=== PATIENT | male | born 1960 | race Caucasian/White ===

== ENCOUNTER 2025-05-07 08:48 | Outpatient (CLI) | payer MEDICARE, SELFPAY ==
[2025-05-07 09:05] VITALS: BP 123/80; PULSE 82; RESP 14; TEMP 36.4; O2SAT 97; BMI 20.5
[2025-05-07 09:20] LABS: Basophils Absolute Auto 0.08 K/mm3 (0.00-0.10); Basophils Percent Auto 0.6 % (0.0-1.0); Eosinophils Absolute Auto 0.36 K/mm3 (0.02-0.50); Eosinophils Percent Auto 2.8 % (1.0-6.0); Hematocrit 43.6 % (37.0-46.0); Immature Granulocyte Absolute 0.06 K/mm3 (0.00-0.00); Immature Granulocyte Percent A 0.5 % (0.0-0.0); Lymphocytes Absolute Auto 1.53 K/mm3 (1.10-4.50); Lymphocytes Percent Auto 12.1 % (18.0-42.0); Mean Corpuscular HGB Conc 32.1 g/dL (32-36); Mean Corpuscular Hemoglobin 27.6 pg (27.0-31.0); Mean Platelet Volume 8.4 fl (8.7-11.0); Monocytes Absolute Auto 1.31 K/mm3 (0.10-0.90); Monocytes Percent Auto 10.3 % (2.0-11.0); Neutrophils Absolute Auto 9.35 K/mm3 (1.70-7.20); Neutrophils Percent Auto 73.7 % (50.0-70.0); Platelet Count Result 439 K/mm3 (150-420); Red Blood Count 5.07 M/mm3 (4.70-6.10); Red Cell Distribution Width 12.9 % (11.6-14.4); White Blood Count 12.7 K/mm3 (4.8-10.8)
[2025-05-07 09:29] LABS: Alanine Aminotransferase 37 U/L (6-50); Albumin Level 4.3 g/dL (3.5-5.1); Alkaline Phosphatase 100 U/L (38-126); Anion Gap 10 mmol/L (4-12); Aspartate Amino Transferase 28 U/L (17-59); Bilirubin,Total 0.6 mg/dL (0.2-1.3); Blood Urea Nitrogen 34 mg/dL (9-20); Calcium 9.9 mg/dL (8.4-10.2); Carbon Dioxide 24 mmol/L (22-30); Chloride 101 mmol/L (98-107); Estimated CRCL calculation 39 ml/min; Estimated Glomerular Filt Rate 46; Glucose 136 mg/dL (65-110); Osmolality Calculated 289 mOsm/kg (285-295); Potassium 4.5 mmol/L (3.4-5.0); Sodium 135 mmol/L (137-145); Total Protein 7.8 g/dL (6.3-8.2)
[2025-05-07] MEDS: PEMBROLIZUMAB 200 MG in SODIUM CHLORIDE 0.9% IV 100 ML IVPB (10:05)
[2025-05-07] MEDS: HEPARIN SODIUM LOCK FLUSH 500 UNITS/5 ML SYRINGE IV PUSH (10:39)
[2025-05-07 10:51] VITALS: BP 109/70; PULSE 80; RESP 14; O2SAT 96
--- NOTE | 2025-05-07 10:53 | PC.NURSE ---
Patient tolerated Pembrolizumab infusion well. see MAR/patient care notes
[2025-05-09 06:58] LABS: Cortisol Random 25.2 mcg/dL
== END 2025-05-07 08:49 | disposition home or self-care (01) ==
LOC: CHSLAB 08:55 → CHSTREATRM 08:58
PROVIDERS: PCP Family Medicine; Visit Provider Internal Medicine Hematology
DX: Z51.11 Encounter for antineoplastic chemotherapy (principal); C04.9 Malignant neoplasm of floor of mouth, unspecified; I10 Essential (primary) hypertension
CPT/HCPCS: 36415; 36591; 80053; 82533; 84443; 85025; 96413; J9271

== ENCOUNTER 2025-05-28 08:41 | Outpatient (CLI) | payer MEDICARE, SELFPAY ==
[2025-05-28 08:45] VITALS: BP 103/60; PULSE 90; RESP 14; TEMP 36.6; O2SAT 95; BMI 20.1
--- OUTSIDE RECORDS SUMMARY | 2025-05-28 08:49 | XMS_ITS | Data Portability ---
Author Organization [facility], [address] [facility] ([place]) Address [address] [place] [address] Care Team Providers Care Wood Treating Inspector Name Role Phone ARRON FLORES Primary Care Provider DANA JUAREZ Fire Claims Adjuster MADELINE GILLILAND Fire Claims Adjuster Assessment Encounter Date Assessment Date Assessment LastModified by Organization Details LastModified Time 05/01/2024 05/01/2024 Mr. Villegas is a pleasant 63-year-old male with a past medical history significant for hypertension, hyperlipidemia, chronic kidney disease stage III with a baseline serum creatinine ranging between 1.6 1.9 who is here for follow-up appointment. Chronic kidney disease stage III with baseline serum creatinine ranging between 1.6 1.9. Patient's most recent serum creatinine is noted to be 2.28 with a GFR of 31 which is slightly worse than previous visit. Patient will repeat a BMP in 1 month. Patient's urine microalbumin/creat inine ratio was not done and he will do it with his 1 month repeat BMP. Fluid and electrolyte balance are adequate. Patient continues to hydrate well and to avoid NSAIDs. Continue to monitor renal function panel at regular intervals. Discussed about KDIGO recommendations to prevent CKD progression -Advised to undertake moderate-intensity physical activity for a cumulative duration of at least 150 minutes per week, or to a level compatible with their cardiovascular and physical tolerance -Patients should consume a balanced, healthy diet that is high in vegetables, , plant-based proteins, unsaturated fats, and lower in processed meats, refined carbohydrates, and sweetened beverages. -Sodium (<2 g/day) and protein intake (0.8 g/kg/day) in accordance with recommendations for the general population. - Suggest NOT to prescribe bisphosphonate treatment in people with GFR o30 ml/min/1.73 m2 (GFR categories G4-G5) without a strong clinical rationale. -Individualize Hba1c target goal of 6.5 to 8 % based on underlying comorbidities -Cessation of tobacco -Avoid Nephrotoxic agents -such as NSAIDS renal dosage of all medications to the appropriate GFR -Reduce albuminuria with use of CARON inhibitor or ARB -initiation of SGLT-2 Inhibitors if appropriate indication. 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 Anemia of chronic disease Patient's hemoglobin is stable with no indication for HOANG. Hypertension Patient's blood pressure is good here in the office. Patient will continue with his current med regimen and continue to follow a low-sodium diet. The patient had the opportunity to ask and have questions answered. The patient voiced an understanding of the diagnosis and of the care plan and intent to comply with it. Not available 05/01/2024 11:04:50 08/28/2024 08/28/2024 Mr. Villegas is a pleasant 64-year-old male with a past medical history significant for hypertension, hyperlipidemia, chronic kidney disease stage III with a baseline serum creatinine ranging between 1.6 1.9 who is here for follow-up appointment. Chronic kidney disease stage III with baseline serum creatinine ranging between 1.6 1.9. Patient's most recent serum creatinine is noted to be 2.32 with a GFR of 30 which is stable. Patient's urine microalbumin/creat inine ratio is minimal at10.3 Fluid and electrolyte balance are adequate. Patient continues to hydrate well and to avoid NSAIDs. Continue to monitor renal function panel at regular intervals. Discussed about KDIGO recommendations to prevent CKD progression -Advised to undertake moderate-intensity physical activity for a cumulative duration of at least 150 minutes per week, or to a level compatible with their cardiovascular and physical tolerance -Patients should consume a balanced, healthy diet that is high in vegetables, , plant-based proteins, unsaturated fats, and lower in processed meats, refined carbohydrates, and sweetened beverages. -Sodium (<2 g/day) and protein intake (0.8 g/kg/day) in accordance with recommendations for the general population. - Suggest NOT to prescribe bisphosphonate treatment in people with GFR o30 ml/min/1.73 m2 (GFR categories G4-G5) without a strong clinical rationale. -Individualize Hba1c target goal of 6.5 to 8 % based on underlying comorbidities -Cessation of tobacco -Avoid Nephrotoxic agents -such as NSAIDS renal dosage of all medications to the appropriate GFR -Reduce albuminuria with use of CARON inhibitor or ARB -initiation of SGLT-2 Inhibitors if appropriate indication. 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 Anemia of chronic disease Patient's hemoglobin is stable with no indication for HOANG. Hypertension Patient's blood pressure is good here in the office. Patient will continue with his current med regimen and continue to follow a low-sodium diet. The patient had the opportunity to ask and have questions answered. The patient voiced an understanding of the diagnosis and of the care plan and intent to comply with it. Not available 08/28/2024 12:01:43 12/25/2024 12/25/2024 Mr. Villegas is a pleasant 64-year-old male with a past medical history significant for hypertension, hyperlipidemia, chronic kidney disease stage III with a baseline serum creatinine ranging between 1.6 1.9 who is here for follow-up appointment. Chronic kidney disease stage III with baseline serum creatinine ranging between 1.6 1.9. Patient's most recent serum creatinine is noted to be 1.9 with a GFR of 37 which is stable. Patient's urine microalbumin/creat inine ratio is minimal at10.3 Fluid and electrolyte balance are adequate. Patient continues to hydrate well and to avoid NSAIDs. Continue to monitor renal function panel at regular intervals. Discussed about KDIGO recommendations to prevent CKD progression -Advised to undertake moderate-intensity physical activity for a cumulative duration of at least 150 minutes per week, or to a level compatible with their cardiovascular and physical tolerance -Patients should consume a balanced, healthy diet that is high in vegetables, , plant-based proteins, unsaturated fats, and lower in processed meats, refined carbohydrates, and sweetened beverages. -Sodium (<2 g/day) and protein intake (0.8 g/kg/day) in accordance with recommendations for the general population. - Suggest NOT to prescribe bisphosphonate treatment in people with GFR o30 ml/min/1.73 m2 (GFR categories G4-G5) without a strong clinical rationale. -Individualize Hba1c target goal of 6.5 to 8 % based on underlying comorbidities -Cessation of tobacco -Avoid Nephrotoxic agents -such as NSAIDS renal dosage of all medications to the appropriate GFR CKD/MBD Calcium and phosphorus are within normal range. Anemia of chronic disease Patient's hemoglobin is stable with no indication for HOANG. Hypertension Patient's blood pressure is good here in the office. Patient will continue with his current med regimen and continue to follow a low-sodium diet. The patient had the opportunity to ask and have questions answered. The patient voiced an understanding of the diagnosis and of the care plan and intent to comply with it. CBC, renal function panel, urine microalbumin/creat inine ratio prior to next appointment follow up in 4 months altaf Not available 12/25/2024 11:57:58 Plan of Treatment Reminders Order Date Submit Date Provider Last Modified By Organization Details Last Modified Time Details Appointments Establish ed Patient 15.EST 2024 02:30P M Dana Juarez Not available Not available Not available Lab None recorded. Referral None recorded. Procedures None recorded. Surgeries None recorded. Imaging None recorded. Medication Orders None recorded. Patient TargetsNo targets recorded. Patient InstructionsNo instructions recorded. Reason for Referral None Reported. Results Created Date Observation Date Name Description Value Unit Range Abnormal Flag Note LastModifiedBy Organization Detail LastModifiedTime Result Notes None recorded. Problems Name Problem SNOMED Code Status Onset Date Resolution Date Notes Provider Name and Address Organization Details Recorded Time Essential hypertension 65291371 Active 2023 Milad [facility] 4 09:49:54 Acute kidney injury 06790013 Active 2023 Milad [facility] 4 09:50:03 Chronic kidney disease stage 3 498980831 Active 2023 Dana Juarez PA-C [address] [place] [address], [phone] [place] [address] 4 10:50:41 Problem Notes None recorded. Medical Equipment None Reported. Medications Name Sig Start Date Stop Date Status Note LastModified by Organization Details LastModified Time ipratropium 0.5 mg-albuterol 3 mg (2.5 mg base)/3 mL nebulization soln INHALE THE CONTENTS OF 1 VIAL VIA NEBULIZER EVERY 6 HOURS NEEDED active Not Available Not Available No t Available amlodipine 10 mg tablet TAKE 1 TABLET BY MOUTH EVERY DAY active Not Available Not Available No t Available albuterol sulfate HFA 90 mcg/actuation aerosol inhaler INHALE 2 PUFFS BY MOUTH EVERY 4 HOURS NEEDED FOR WHEEZING active Not Available Not Available No t Available Vitamin D3 25 mcg (1,000 unit) chewable tablet Take 1 tablet every day by oral route. active Not Available Not Available No t Available Spiriva Respimat 1.25 mcg/actuation solution for inhalation TAKE 2 PUFFS BY MOUTH EVERY DAY active Not Available Not Available No t Available Vitals Date Recorded Body weight Heart rate Oxygen saturation Oxygen saturation in Arterial blood by Pulse oximetry Systolic And Diastolic Provider Name and Address Organization Details Last Updated DateTime 98643.8 6 g 94 /min 92 % 92 % 100/70 mm[Hg] [facility] 5 11:01:49 Date Recorded Body weight Heart rate Systolic And Diastolic Provider Name and Address Organization Details Last Updated DateTime 05/01/2024 92892.26 g 81 /min 124/78 mm[Hg] [facility] 05/01/2024 10:49:59 Date Recorded Body weight Heart rate Systolic And Diastolic Provider Name and Address Organization Details Last Updated DateTime 08/28/2024 56466.86 g 89 /min 116/68 mm[Hg] [facility] 08/28/2024 11:36:51 Social History None recorded. Functional Status None recorded. Mental Status None recorded. Family History Nothing Reported. Medical History No medical history recorded. Past Encounters Encounter ID Performer Location Encounter Start Date Encounter Closed Date Diagnosis/Indication Diagnosis SNOMED-CT Code Diagnosis ICD10 Code Diagnosis Note [id number] Dana Juarez PA-C [facility] ([place] [address] [place] [address] 05/01/2024 10:38:18 05/01/2024 11:03:26 Acute kidney injury 95645317 N17.9 Essential hypertension 85556281 I10 Chronic ki dney disease stage 3 356291826 N18.30 [id number] Dana Juarez PA-C [facility] ([place]) [address] [place] [address] 08/28/2024 11:26:29 08/28/2024 11:57:17 Chronic kidney disease stage 3 451424684 N18.30 Essential hypertension 94985116 I10 Acute kidney injury 1466 9001 N17.9 [id number] Madeline Gilliland MD [facility] ([place]) [address] [place] [address] 12/25/2024 10:55:32 12/25/2024 11:42:58 Acute kidney injury 80999180 N17.9 Chronic ki dney disease stage 3 435515481 N18.30 Essential hypertension 94411287 I10 Health Concerns Section Related Observation LastModified by Organization Detai ls LastModified Time None Recorded Concern Status LastModified by Organization Details LastModified Time None Recorded Advance Directives Directive None Recorded Payers Insurance Date Sequence Insurance Name Policy Number Policy Francis Covered Member ID Francis Member ID Guarantor Name 12/26/2024 1 [facility] (MEDICARE REPLACEMENT/ ADVANTAGE - PPO) [id number] Omari S Nelly [id number] Omari S Nelly 05/01/2024 1 [employer] (POS II) [id number] Omari S Nelly [id number] Omari S Nelly 12/20/2024 2 [place] Omari S Nelly [id number] Omari S Nelly Notes Date Note Type Note Provider Name and Address Organization Details Recorded Time 05/01/2024 text/html Mr. Villegas is a pleasant 63-year-old male with a past medical history significant for hypertension, hyperlipidemia, chronic kidney disease stage III with a baseline serum creatinine ranging between 1.6 1.9 who is here for follow-up appointment. Patient denies any fever, chills, or sweats. He denies any chest pain or shortness of breath. He continues to hydrate well and to avoid NSAIDs. He denies any concerns since his last visit. Dana Juarez PA-C [address] [place] [address], [phone], [facility] 05/01/2024 11:06:26 08/28/2024 text/html Mr. Villegas is a pleasant 64-year-old male with a past medical history significant for hypertension, hyperlipidemia, chronic kidney disease stage III with a baseline serum creatinine ranging between 1.6 1.9 who is here for follow-up appointment. Patient denies any fever, chills, or sweats.He denies any chest pain or shortness of breath.He continues to hydrate well and to avoid NSAIDs.He denies any concerns since his last visit. Dana Juarez PA-C [address] [place] [address], [phone], [facility] 08/28/2024 12:03:41 12/25/2024 text/html Mr. Villegas is a pleasant 64-year-old male with a past medical history significant for hypertension, hyperlipidemia, chronic kidney disease stage III with a baseline serum creatinine ranging between 1.6 1.9 who is here for follow-up appointment. He denies having any nausea, vomiting or diarrhea Denies having any lightheadedness or dizziness Blood pressure in the office today is under good control He is been compliant with his medications as well as low-sodium diet He denies having any worsening lower extremity edema Madeline Gilliland MD [address] [place] [address], [phone], [facility] 12/25/2024 11:58:41
[2025-05-28 09:03] LABS: Hematocrit 42.3 % (37.0-46.0); Hemoglobin 13.5 g/dL (12.4-15.3); Immature Granulocyte Percent A 0.4 % (0.0-0.0); Immature Platelet Fraction Pct 0.6 % (1.0-7.0); Lymphocytes Absolute Auto 1.84 K/mm3 (1.10-4.50); Mean Corpuscular HGB Conc 31.9 g/dL (32-36); Mean Corpuscular Hemoglobin 27.0 pg (27.0-31.0); Mean Corpuscular Volume 84.6 fL (78.0-102.0); Nucleated Red Blood Cells Absolute Auto 0.00 K/mm3 (0.00-0.00); Nucleated Red Blood Cells Perc 0.0 % (0-0.0); Platelet Count Result 569 K/mm3 (150-420); Red Blood Count 5.00 M/mm3 (4.70-6.10); White Blood Count 10.8 K/mm3 (4.8-10.8)
[2025-05-28 09:11] LABS: Alanine Aminotransferase 19 U/L (6-50); Albumin Level 3.9 g/dL (3.5-5.1); Alkaline Phosphatase 122 U/L (38-126); Anion Gap 7 mmol/L (4-12); Aspartate Amino Transferase 25 U/L (17-59); Bilirubin,Total 0.3 mg/dL (0.2-1.3); Blood Urea Nitrogen 27 mg/dL (9-20); Calcium 9.5 mg/dL (8.4-10.2); Carbon Dioxide 26 mmol/L (22-30); Chloride 102 mmol/L (98-107); Estimated CRCL calculation 35 ml/min; Estimated Glomerular Filt Rate 40; Glucose 107 mg/dL (65-110); Osmolality Calculated 285 mOsm/kg (285-295); Potassium 4.4 mmol/L (3.4-5.0); Sodium 135 mmol/L (137-145); Total Protein 7.5 g/dL (6.3-8.2)
[2025-05-28] MEDS: PEMBROLIZUMAB 200 MG in SODIUM CHLORIDE 0.9% IV 92 ML IVPB (09:41)
[2025-05-28] MEDS: HEPARIN SODIUM LOCK FLUSH 500 UNITS/5 ML SYRINGE IV PUSH (10:12)
[2025-05-28 10:30] VITALS: BP 104/63; PULSE 64; RESP 14; O2SAT 97
--- NOTE | 2025-05-28 10:59 | PC.NURSE ---
1030 Tolerated Pembrolizumab infusion well. SEE MAR/patient care notes.
== END 2025-05-28 08:42 | disposition home or self-care (01) ==
PROVIDERS: PCP Family Medicine; Visit Provider Internal Medicine Hematology
DX: Z51.11 Encounter for antineoplastic chemotherapy (principal); C04.9 Malignant neoplasm of floor of mouth, unspecified
CPT/HCPCS: 36415; 36591; 80053; 85025; 85055; 96413; J9271

== ENCOUNTER 2025-07-30 10:00 | Outpatient (CLI) | payer MEDICARE, SELFPAY ==
--- OUTSIDE RECORDS SUMMARY | 2025-07-28 09:30 | XMS_ITS | Encounter Summary ---
Author Organization [facility] Address [address] [place] [address] Care Team Providers Care Recruitment Specialist Name Role Phone Jeovanny Cullen MD Primary Care Provider Danyell Allen MD Unavailable [phone] Encounter Details Date Type Department Care Team (Latest Contact Info) Description 07/28/2025 9:30 AM CDT - 07/28/2025 11:59 PM T Hospital Encounter 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 fentaNYL (DURAGESIC) 25 mcg/hr Place 1 patch onto the skin for 3 (three) days. 05/20/2025 ipratropium-albu terol (DUONEB) 0.5-2.5 (3) MG/3ML Solution Take 3 mLs by nebulization every 6 (six) hours as needed. lidocaine viscous (XYLOCAINE) 2 % solution Take 15 mLs by mouth as needed. FOR PAIN 05/11/2025 oxyCODONE immediate release (ROXICODONE) 5 MG immediate release tablet Take 1 tablet (5 mg total) by mouth every 6 (six) hours as needed for Pain. 05/04/2025 SENEXON-S 8.6-50 MG tablet Take 1 tablet by mouth 2 (two) times daily as needed. 05/04/2025 tiotropium (SPIRIVA RESPIMAT) 1.25 MCG/ACT inhaler (SPIRIVA RESPIMAT) Inhale 2 puffs into the lungs daily. documented as of this encounter Plan of Treatment Upcoming Encounters Date Type Department Care Team (Late st Contact Info) Description 07/30/2025 1:[address] [facility] Radiation Oncology [address] [address] Alonzo Silverio MD [address] [place] [address] 07/30/2025 1:[address] [facility] Radiation Oncology [facility] [address] [place] [address] Alonzo Silverio MD [address] [place] [address] 09/03/2025 10:15 AM CDT Office Visit [facility] [address] [place] [address] Eugene Beverly MD [address] [facility] [address] [place] [address] documented as of this encounter Visit Diagnoses Not on filedocumented in this encounter Care Teams Recruitment Specialist Relationship Specialty Start Date End Date Jeovanny Cullen MD [address] [facility] [place] [address] PCP - General FAMILY PRACTICE 01/10/21 Danyell Allen MD [address] [place] [address] OTOLARYNGOLOGY 05/25/25 documented as of this encounter
--- OUTSIDE RECORDS SUMMARY | 2025-07-29 09:22 | XMS_ITS | Encounter Summary ---
Author Organization [facility] Address [address] [place] [address] Care Team Providers Care Mail Examiner Name Role Phone Jeovanny Cullen MD Primary Care Provider Danyell Allen MD Unavailable [phone] Encounter Details Date Type Department Care Team (Late Contact Info) Description 07/29/2025 9:22 AM CDT Hospital Encounter [facility] Radiation [address] [address] Alonzo Silverio MD [address] [place] [address] Social History Tobacco Use Types Packs/Day Years Used Date Smoking Tobacco: Former Cigarettes 1.5 30 1 2018 Smokeless Tobacco: Never Alcohol Use Standard Drinks/Week Comments Yes 0 (1 standard drink = 0.6 oz pur e alcohol) Sex and Gender Information Value Date Recorded Sex Assigned at Male 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 Sex Male 7:41 AM CDT Gender Identity Not on file Sexual Orientation Not on file documented as of this encounter Plan of Treatment Upcoming Encounters Date Type Department Care Team (Late Contact Info) Description 07/30/2025 1:00 PM CDT Appointment [facility] Radiation [facility] [address] [place] [address] Alonzo Silverio MD [address] [place] [address] 07/30/2025 1:30 PM CDT Appointment [facility] Radiation Oncology - [place] [address] [place] [address] Alonzo Silverio MD [address] [place], [place] [id number] 09/03/2025 10:15 AM CDT Office Visit [facility] [address] [place] [id number] Eugene Beverly MD [address] [facility] [address] [place] [address] documented as of this encounter Visit Diagnoses Not on filedocumented in this encounter Care Teams Mail Examiner Relationship Specialty Start [place] [address] [place] [address] [place] [address] PCP - General FAMILY PRACTICE 01/10/21 Danyell Allen MD [address] [place] [address] OTOLARYNGOLOGY 05/25/25 documented as of this encounter
[2025-07-30 10:20] VITALS: BP 106/63; PULSE 68; RESP 14; TEMP 36.5; O2SAT 98; BMI 18.5
[2025-07-30 10:23] LABS: Hematocrit 39.2 % (37.0-46.0); Hemoglobin 12.2 g/dL (12.4-15.3); Immature Granulocyte Percent A 0.2 % (0.0-0.0); Lymphocytes Absolute Auto 0.95 K/mm3 (1.10-4.50); Mean Corpuscular HGB Conc 31.1 g/dL (32-36); Mean Corpuscular Hemoglobin 26.8 pg (27.0-31.0); Mean Corpuscular Volume 86.2 fL (78.0-102.0); Nucleated Red Blood Cells Absolute Auto 0.00 K/mm3 (0.00-0.00); Nucleated Red Blood Cells Perc 0.0 % (0-0.0); Platelet Count Result 420 K/mm3 (150-420); Red Blood Count 4.55 M/mm3 (4.70-6.10); White Blood Count 8.2 K/mm3 (4.8-10.8)
[2025-07-30 10:38] LABS: Alanine Aminotransferase 51 U/L (6-50); Albumin Level 4.3 g/dL (3.5-5.1); Alkaline Phosphatase 126 U/L (38-126); Anion Gap 12 mmol/L (4-12); Aspartate Amino Transferase 37 U/L (17-59); Bilirubin,Total 0.3 mg/dL (0.2-1.3); Blood Urea Nitrogen 49 mg/dL (9-20); Calcium 9.9 mg/dL (8.4-10.2); Carbon Dioxide 26 mmol/L (22-30); Chloride 101 mmol/L (98-107); Estimated CRCL calculation 45 ml/min; Estimated Glomerular Filt Rate > 60; Glucose 107 mg/dL (65-110); Osmolality Calculated 301 mOsm/kg (285-295); Potassium 4.7 mmol/L (3.4-5.0); Sodium 139 mmol/L (137-145); Total Protein 7.7 g/dL (6.3-8.2)
--- OUTSIDE RECORDS SUMMARY | 2025-07-30 10:40 | XMS_ITS | Clinical Summary ---
Author Organization [facility] Address [address] [place] [address] Care Team Providers Care Distribution Driver Name Role Phone Jeovanny Cullen MD Primary Care Provider Danyell Allen MD Unavailable [phone] Allergies Active Allergy Reactions Criticality Noted Date Comments Iodine Anxiety,Other (see comment) Low 05/11/2025 Pt states I get a burning inside and do not feel good. Losartan Potassium-Hctz Nausea and Vomiting 05/25/2025 Medications albuterol sulfate HFA 108 (90 Base) MCG/ACT inhaler Inhale 2 puffs into the lungs every 4 (four) hours as needed for Wheezing. Active tiotropium (SPIRIVA RESPIMAT) 1.25 MCG/ACT inhaler (SPIRIVA RESPIMAT) Inhale 2 puffs into the lungs daily. Active ipratropium-alb uterol (DUONEB) 0.5-2.5 (3) MG/3ML Solution Take 3 mLs by nebulization every 6 (six) hours as needed. Active oxyCODONE immediate release (ROXICODONE) 5 MG immediate release tablet Take 1 tablet (5 mg total) by mouth every 6 (six) hours as needed for Pain. 5 Active SENEXON-S 8.6-50 MG tablet Take 1 tablet by mouth 2 (two) times daily as needed. 5 Active fentaNYL (DURAGESIC) 25 mcg/hr Place 1 patch onto the skin for 3 (three) days. 5 Active lidocaine viscous (XYLOCAINE) 2 % solution Take 15 mLs by mouth as needed. FOR PAIN Active Active Problems Problem Noted Date Diagnosed Date Shortness of breath 06/02/2025 Abnormal EKG 06/02/2025 Mixed hyperlipidemia 06/02/2025 Glenoid labrum tear, right, initial encounter Resolved Problems Problem Noted Date Diagnosed Date Resolved Date Pre-op exam 06/02/2025 06/08/2025 Encounters Date Type Department Care Team Description 07/29/2025 9:22 AM CDT Hospital Encounter [address] [address] Alonzo Silverio MD 07/29/2025 Travel 07/28/2025 9:30 AM CDT - 07/28/2025 11:59 PM CDT Hospital Encounter [address] [address] Alonzo Silverio MD Discharge Disposition: Home or Self Care (Routine Discharge) 07/28/2025 Travel 07/20/2025 2:28 PM CDT - 07/20/2025 11:59 PM CDT Hospital Encounter [facility] [address] [place] [address] Alonzo Silverio MD Discharge Disposition: Home or Self Care (Routine Discharge) 07/20/2025 1:40 PM CDT - 07/20/2025 2:27 PM CDT Hospital Encounter [address] [address] Alonzo Silverio MD Discharge Disposition: Home or Self Care (Routine Discharge) 07/20/2025 Travel 07/10/2025 Telephone [facility] [address] [place] [address] Yanelis Deluna MD Appointment Request 07/09/2025 11:47 AM CDT - 07/09/2025 11:59 PM CDT Hospital Encounter [address] [address] Alonzo Silverio MD Discharge Disposition: Home or Self Care (Routine Discharge) 07/09/2025 Travel 07/07/2025 10:45 AM CDT - 07/07/2025 11:59 PM CDT Hospital Encounter [facility] [place] [address] [place] [address] Alonzo Silverio MD Discharge Disposition: Home or Self Care (Routine Discharge) 07/02/2025 9:23 AM CDT - 07/02/2025 11:59 PM CDT Hospital Encounter [facility] [address] [place] [address] Dana Zhong PA-C Discharge Disposition: Home or Self Care (Routine Discharge) 07/02/2025 8:53 AM CDT - 07/02/2025 9:22 AM CDT Hospital Encounter [facility] [address] [place] [address] Yanelis Deluna MD Petrelli, Brandy L, WINDOW INSTALLER Discharge Disposition: Home or Self Care (Routine Discharge) 07/02/2025 Orders Only [facility] [address] [place] [address] Dana Zhong PA-C 07/01/2025 12:58 PM CDT - 07/01/2025 11:59 PM CDT Hospital Encounter [facility] [address] [place] [address] Dana Zhong PA-C Discharge Disposition: Home or Self Care (Routine Discharge) 07/01/2025 Orders Only [facility] [address] [place] [address] Dana Zhong PA-C 07/01/2025 Travel 07/01/2025 Transcribe Orders [facility] Pre Access Team [address] [place] [address] Yanelis Deluna MD 06/25/2025 7:30 AM CDT Telephone [facility] [address] [place] [address] Eugene Beverly MD Holter Monitor 06/05/2025 Telephone [facility] [address] [place] [address] Eugene Beverly MD Surgical Clearance 06/02/2025 9:15 AM CDT Office Visit [facility] [address] [place] [address] Eugene Beverly MD Consult (.....surgical clearance Abnormal EKG/, pre-op clearance radical neck by Dr Alejandro CORCORAN E[facility] ) 06/02/2025 Telephone [facility] [address] [place] [address] Eugene Beverly MD Appointment Request 06/02/2025 Travel 05/29/2025 Orders Only [facility] [place] [address] Eugene Beverly MD 05/26/2025 3:57 PM CDT - 05/26/2025 11:59 PM CDT Hospital Encounter [facility] [address] [place] [address] Danyell Allen MD Discharge Disposition: Home or Self Care (Routine Discharge) 05/26/2025 Travel 05/25/2025 Scan [facility] [address] [place] [address] Scanned, Doc Pccl 05/25/2025 Abstract [facility] [address] [place] [address] Abstract, Doc Pccl 05/25/2025 Telephone [facility] [address] [place] [address] Eugene Beverly MD Referral Request 05/22/2025 2:31 PM CDT - 05/22/2025 11:59 PM CDT Hospital Encounter [facility] [address] [place] [address] Danyell Allen MD Discharge Disposition: Home or Self Care (Routine Discharge) 05/22/2025 Travel 05/13/2025 10:23 AM CDT - 05/13/2025 11:59 PM CDT Hospital Encounter [facility] [address] [place] [address] Nohemy Head MD Discharge Disposition: Home or Self Care (Routine Discharge) 05/13/2025 Travel 05/11/2025 7:51 AM CDT - 05/11/2025 10:20 AM CDT Emergency [facility] [address] [place] [address] Aiden Rich DO Syncope Discharge Disposition: Home or Self Care (Routine Discharge) 05/11/2025 Travel from Last 3 Months Family History Medical History Relation Comments No Known Problems Brother bone cancer Father No Known Problems Mother No Known Problems Sister Relation Status Comments Brother Alive Father Mother Alive Sister Alive Social History Tobacco Use Types Packs/Day Years Used Date Smoking Tobacco: Former Cigarettes 1.5 2018 Smokeless Tobacco: Never Alcohol Use Standard Drinks/Week Comments Yes 0 (1 standard drink = 0.6 oz pur e alcohol) Sex and Gender Information Value Date Recorded Sex Assigned at Male 12/11/2024 8:53 AM NAIL TECH Legal Sex Male 7:41 AM CDT Gender Identity Not on file Sexual Orientation Not on file Last Filed Vital Signs Vital Sign Reading Time Taken Comments Blood Pressure 110/66 06/02/2025 9:14 AM CDT Pulse 92 06/02/2025 9:14 AM CDT Temperature 35.8 C (96.5 F) 05/11/2025 8:00 AM CDT Respiratory Rate 16 06/02/2025 9:14 AM CDT Oxygen Saturation 97% 06/02/2025 9:14 AM CDT Inhaled Oxygen Concentration - - Weight 61.1 kg (134 lb 9.6 oz) 06/02/2025 9:14 A M CDT Height 177.8 cm (5' 10) 06/02/2025 9:14 AM CDT Body Mass Index 19.31 06/02/2025 9:14 AM CDT Plan of Treatment Upcoming Encounters Date Type Department Care Team (Late st Contact Info) Description 07/30/2025 1:00 PM CDT Appointment [facility] [place] [address] [place] [address] Alonzo Silverio MD [address] [place] [address] 07/30/2025 1:30 PM CDT Appointment [facility] [place] [address] [place] [address] Alonzo Silverio MD [address] [place] [address] 09/03/2025 10:15 AM CDT [facility] [address] [place] [address] Eugene Beverly MD [address] [facility] [address] [place] [address] Health Maintenance Due Date Last Done Comments ASCVD Statin 1960 Colorectal Cancer Screening Colonoscopy (10 Years) 1960 Hepatitis C 1977 DTaP, Tdap and Td Vaccines (1 - Tdap) 1978 Zoster Vaccines (1 of 2) 1978 RSV Immunization or 60+ Years (1 - Risk 60-74 years 1-dose series) 2019 Pneumococcal Vaccine: 50+ Years (2 of 2 - PCV) 01/12/2020 01/11/2019 COVID-19 Vaccine (2 - Moderna risk series) 02/26/2021 01/29/2021 Annual Medicare Wellness Visit 2024 ASCVD LDL 2025 2024 AAA SCREENING Completed 05/22/2025, 02/11, 09/12/2021, Additional history exists Meningococcal B Vaccine Aged Out No l onger eligible based on patient's age to complete this topic Meningococcal Vaccine Aged Out No jovi galdino eligible based on patient's age to complete this topic RSV Immunizations Under 20 Months Aged Out No longer eligible based on patient's age to complete this topic Procedures Procedure Name Priority Date/Time Associated Diagnosis Comments EVENT RECORDER (ECG) UP TO 30 DAYS COMPLETE Routine 07/27/2025 12:28 PM CDT Abnormal EKG 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 CT RAD THRPY PLAN W CON Routine 07/20/20 2:55 PM CDT 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) XR SPEECH SWALLOW SFL ONLY STAT 07/02/2025 9:37 AM CDT Dysphagia ALBUMIN URINE RANDOM W/CREATININE Routine 07/02/2025 7:30 AM CDT Chronic kidney disease, stage 3 unspecified (CMS/HCC) RENAL FUNCTION PANEL Routine 07/01/2025 1:08 PM CDT Chronic kidney disease, stage III (moderate) (CMS/HCC) CBC W/DIFF AUTOMATED Routine 07/01/2025 1:08 PM CDT Chronic kidney disease, stage III (moderate) (CMS/HCC) ELECTROCARDIOGRAM (NON MIDMARK ACQUIRED) Routine 06/02/2025 9:23 AM CDT Abnormal EKG Pre-op exam CT FACIAL BONES W CON STAT 05/26/2025 4:44 PM CDT 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) CREATININE STAT 05/26/2025 2:[address] CHEST WO CON STAT 05/22/2025 2:40 PM CDT 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) MRI BRAIN WWO CON Routine 05/13/2025 11: 43 AM CDT Headache 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) XR CHEST PA+LAT STAT 05/11/2025 8:39 AM CDT TROPONIN, QUANT STAT 05/11/2025 8:23 AM CDT COMPREHENSIVE METABOLIC PANEL STAT 05/11/2025 8:23 AM CDT CBC W/DIFF AUTOMATED STAT 05/11/2025 8:23 AM CDT ECG 12-LEAD STAT 05/11/2025 8:11 AM CDT LIPID PANEL Routine 2024 9:28 AM CDT Lipid screening Family history of diabetes mellitus Hypertension, benign from Last 3 Months or Most Recently Relevant to Health Maintenance Results * CT RAD THRPY PLAN W CON (07/20/2025 2:55 PM CDT) Anatomical Region Laterality Modality Undefined Computed Tomogra phy 07/29/2025 2:57 PM CDT Impressions 07/29/2025 3:03 PM CDT IMPRESSION: Radiation therapy planning CT scan as described. Ordered By: ALONZO SILVERIO Interpreted By: Jermaine Chu MD, 07/29/2025 2:57 PM Narrative 07/29/2025 3:03 PM CDT [address] [place] [address] Examination: Radiation therapy planning CT scan. Exam time: 1452 hours. Clinical history: Head and neck cancer. Comparison: Maxillofacial CT without contrast, 05/26/2025. Technique: Postcontrast spiral axial scans from the lower chest through the vertex with fiducial markers in place. A dose lowering technique was used for this procedure, which may include, but is not limited to, dose reduction techniques, automated exposure control, the use of iterative reconstruction and ALARA/Image Gently techniques. Findings: Postoperative changes are now apparent to include partial resection of the left hemimandible with reconstruction. Assessment of residual tumor is not considered reliable given the extent of the surgery. No lymphadenopathy is identified. No acute or significant intracranial abnormality is identified. No suspicious bony lesion is identified. Left subclavian port catheter terminates in the SVC. Changes of centrilobular emphysema are evident. There is a calcified granuloma in the right upper lobe. Within the limitations of the technique, the lungs are otherwise clear. Procedure Note Jermaine Chu MD - 07/29/2025 [facility] [address] [place] [address] Examination: Radiation therapy planning CT scan. Exam time: 1452 hours. Clinical history: Head and neck cancer. Comparison: Maxillofacial CT without contrast, 05/26/2025. Technique: Postcontrast spiral axial scans from the lower chest throughthe vertex with fiducial markers in place. A dose lowering technique wasused for this procedure, which may include, but is not limited to, dosereduction techniques, automated exposure control, the use of iterativereconstruction and ALARA/Image Gently techniques. Findings: Postoperative changes are now apparent to include partialresection of the left hemimandible with reconstruction. Assessment ofresidual tumor is not considered reliable given the extent of the surgery.No lymphadenopathy is identified. No acute or significant intracranialabnormality is identified. No suspicious bony lesion is identified. Leftsubclavian port catheter terminates in the SVC. Changes of centrilobularemphysema are evident. There is a calcified granuloma in the right upperlobe. Within the limitations of the technique, the lungs are otherwiseclear. IMPRESSION: Radiation therapy planning CT scan as described. Ordered By: ALONZO SILVERIO Interpreted By: Jermaine Chu MD, 07/29/2025 2:57 PM us Alonzo Silverio MD CT Final Result * SFL - XR SPEECH SWALLOW (07/02/2025 9:37 AM CDT) Anatomical Region Laterality Modality NA Radiographic Katheryn ging, Radiographic Imaging 07/02/2025 10:0 7 AM CDT Impressions 07/02/2025 10:13 AM CDT IMPRESSION: Swallowing dysfunction as described. Please reference the speech pathologist report for complete details. Ordered By: YANELIS DELUNA Interpreted By: Jermaine Chu MD, 07/02/2025 10:07 AM Narrative 07/02/2025 10:13 AM CDT [address] [place] [address] Examination: Video esophagogram. Exam time: 0931 hours. Clinical history: History of head and neck cancer, status post surgery for same. Currently n.p.o. receiving tube feedings. Assessment prior to diet advancement. Comparison: None. Technique: Fluoroscopic monitoring at the direction of the speech pathologist. 3.1 minutes of fluoroscopy time was used. Thirteen cine series were captured for review. Findings: The patient was offered liquids and puree sequentially at the direction of the speech pathologist. MM5 was offered but had to be expectorated. Solids were not trialed. Pooling in the oral cavity and premature spillage to the vallecula was observed. Once triggered, the swallow proceeded rapidly. There is diminished motion of the epiglottis with some undercoating noted with liquids. Pooling in the oral cavity improved with repeat swallows. No nasopharyngeal reflux, penetration or aspiration was observed. Procedure Note Jermaine Chu MD - 07/02/[address] [place] [address] Examination: Video esophagogram. Exam time: 0931 hours. Clinical history: History of head and neck cancer, status post surgery forsame. Currently n.p.o. receiving tube feedings. Assessment prior to dietadvancement. Comparison: None. Technique: Fluoroscopic monitoring at the direction of the speechpathologist. 3.1 minutes of fluoroscopy time was used. Thirteen cineseries were captured for review. Findings: The patient was offered liquids and puree sequentially at thedirection of the speech pathologist. MM5 was offered but had to beexpectorated. Solids were not trialed. Pooling in the oral cavity andpremature spillage to the vallecula was observed. Once triggered, theswallow proceeded rapidly. There is diminished motion of the epiglottiswith some undercoating noted with liquids. Pooling in the oral cavityimproved with repeat swallows. No nasopharyngeal reflux, penetration oraspiration was observed. IMPRESSION: Swallowing dysfunction as described. Please reference the speechpathologist report for complete details. Ordered By: YANELIS DELUNA Interpreted By: Jermaine Chu MD, 07/02/2025 10:07 AM Yanelis Deluna MD FLUOROSCOPY Final Result * ALBUMIN CREATININE URINE RANDOM (07/02/2025 7:30 AM CDT) ALBUMIN (U) 0.5 MG/DL 07/02/2025 10:21 AM CDT [facility] Comment:REFERENCE RANGE NOT ESTABLISHED CREATININE RANDOM (U) 40.9 MG/DL 07/02/2025 10:21 AM CDT [facility] Comment:REFERENCE RANGE NOT ESTABLISHED ALBUMIN/CREAT RATIO 12.2 <30 MG/G 07/02/2025 10:21 AM CDT [facility] Comment: NORMAL TO MILDLY INCREASED ALBUMINURIA: <30 MG/G MODERATELY INCREASED ALBUMINURIA: 30 TO 300 MG/G SEVERELY INCREASED ALBUMINURIA: >300 MG/G PER KDIGO URINE SPECIMEN / Unknown 07/02/2025 7:30 AM CDT Dana Zhong PA-C URINE ORDERABLES Final Res ult [facility] [place] [address], * (ABNORMAL) RENAL FUNCTION PANEL (07/01/2025 1:08 PM CDT) SODIUM S/P/B 137 136 - 145 MMOL/L 07/01/2025 1:29 PM CDT [facility] POTASSIUM S/P/B 4.3 3.5 - 5.1 MMOL/L 07/01/2025 1:29 PM CDT [facility] CHLORIDE S/P/B 99 98 - 107 MMOL/L 07/01/2025 1:29 PM [facility] CO2 30.0 21.0 - 32.0 MMOL/L 07/01/2025 1:29 PM [facility] GLUCOSE 109(H) 70 - 99 MG/DL 07/01/2025 1:29 PM [facility] Comment: FASTING GLUCOSE 100 TO 125 MG/DL IS CONSISTENT WITH IMPAIRED FASTING GLUCOSE. FASTING GLUCOSE >125 MG/DL IS CONSISTENT WITH DIABETES. RANDOM GLUCOSE >200 MG/DL WITH HYPERGLYCEMIC SYMPTOMS IS CONSISTENT WITH DIABETES. PER ADA GUIDELINES BUN 46(H) 6 - 24 MG/DL 07/01/2025 1:29 PM [facility] CREATININE S/P/B 1.18 0.70 - 1.30 MG/DL 07/01/2025 1:29 PM [facility] CALCIUM S/P/B 9.9 8.4 - 10.5 MG/DL 07/01/2025 1:29 PM [facility] ALBUMIN S/P/B 2.8(L) 3.4 - 5.0 G/DL 07/01/2025 1:29 PM [facility] PHOSPHORUS 3.4 2.6 - 4.7 MG/DL 07/01/2025 1:29 PM [facility] ANION GAP 8.0 5.0 - 15.0 MMOL/L 07/01/2025 1:29 PM [facility] OSMOLALITY (CALC) 296 MOSM/KG 025 1:29 PM [facility] Comment:REFERENCE RANGE NOT ESTABLISHED GFR ESTIMATE 68(L) >89 ML/MIN/1. 73 M2 07/01/2025 1:29 PM [facility] GFR NOTES GFR REFERENCE S: 07/01/2025 1:29 PM [facility] Comment: THE ESTIMATED GFR IS CALCULATED USING THE 2020 CKD-EPI EQUATION. THE FOLLOWING CATEGORIES FOR GRADING RENAL FUNCTION ARE RECOMMENDED BY THE INTERNATIONAL SOCIETY OF NEPHROLOGY (KDIGO 2012 CLINICAL PRACTICE GUIDELINE). G1,NORMAL OR HIGH: >89 ml/min/1.73 m2 G2,MILDLY DECREASED: 60-89 ml/min/1.73 m2 G3A,MILDLY TO MODERATELY DECREASED: 45-59 ml/min/1.73 m2 G3B,MODERATELY TO SEVERELY DECREASED: 30-44 ml/min/1.73 m2 G4,SEVERELY DECREASED: 15-29 ml/min/1.73 m2 G5,KIDNEY FAILURE: <15 ml/min/1.73 m2 07/01/2025 1:08 PM CDT Dana Zhong PA-C LABORATORY Final Resu lt [facility] [address] [place] [address], * (ABNORMAL) CBC W/DIFF AUTOMATED (07/01/2025 1:08 PM CDT) Only the most recent of2 resultswithin the time period is included. WBC 8.11 4.00 - 10.80 x10'3/uL 07/01/2025 1:19 PM CDT [facility] RBC 3.89(L) 4.50 - 6.10 x10'6/uL 07/01/2025 1:19 PM CDT [facility] HGB 11.0(L) 13.0 - 18.0 G/DL 07/01/2025 1:19 PM CDT [facility] HCT 35.2(L) 37.0 - 52.0 % 07/01/2025 1:19 PM CDT [facility] MCV 90.5 78.0 - 100.0 FL 07/01/2025 1:19 PM CDT [facility] MCH 28.3 27.0 - 31.0 PG 07/01/2025 1:19 PM CDT [facility] MCHC 31.3(L) 33.0 - 36.0 G/DL 07/01/2025 1:19 PM CDT [facility] RDW 16.4(H) 11.5 - 14.5 % 07/01/2025 1:19 PM CDT [facility] PLT 513(H) 150 - 350 x10'3/uL 07/01/2025 1:19 PM CDT [facility] MPV 8.4 7.4 - 10.4 FL 07/01/2025 1:19 PM CDT [facility] CBC COMMENT NORMAL REFERENCE RANGE NOT ESTABLISHED FOR THE PROPORTIONAL LEUKOCYTE DIFFERENTIAL. 07/01/2025 1:19 PM CDT [facility] NEUTROPHILS % 66.8 % 07/01/2025 1:19 PM CDT [facility] LYMPHOCYTES % 16.0 % 07/01/2025 1:19 PM CDT [facility] MONOCYTES % 11.3 % 07/01/2025 1:19 PM CDT [facility] EOSINOPHILS % 4.3 % 07/01/2025 1:19 PM CDT [facility] BASOPHILS % 1.4 % 07/01/2025 1:19 PM CDT [facility] IMMATURE GRANS % 0.2 % 07/01/20 1:19 PM CDT [facility] NRBC % 0.0 % 07/01/2025 1:19 PM CDT [facility] ABS. NEUTROPHILS 5.41 1.60 - 8.30 x10'3/uL 07/01/2025 1:19 PM CDT [facility] ABS. LYMPHOCYTES 1.30 0.80 - 4.70 x10'3/uL 07/01/2025 1:19 PM CDT [facility] ABS. MONOCYTES 0.92 0.00 - 1.50 x10'3/uL 07/01/2025 1:19 PM CDT [facility] ABS. EOSINOPHILS 0.35 0.00 - 0.40 x10'3/uL 07/01/2025 1:19 PM CDT [facility] ABS. BASOPHILS 0.11 0.00 - 0.20 x10'3/uL 07/01/2025 1:19 PM CDT [facility] ABS. IMMATURE GRANULOCYTES 0.02 0.00 - 0.03 x10'3/uL 07/01/2025 1:19 PM CDT [facility] ABS. 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: michael : 1960 Requested By: EUGENE BEVERLY Order Number: [id number] Reading MD: Eugene Beverly Measurements Intervals [place] Rate: 100 P: 86 [place]: 160 QRS: 58 QRSD: 78 T: 78 QT: 310 QTc: 400 Interpretive Statements SINUS TACHYCARDIA ABNORMAL RHYTHM ECG Procedure Note Eugene Beverly MD - 06/03/2025 [facility] [address] [place] [address] Test Date: 2025-06-02 Pat Name: [facility] Department: 105 Room: Gender: Male Clicker Operator: michael : 1960 Requested By: EUGENE BEVERLY Order Number: [id number] Reading MD: Eugene Beverly Measurements Intervals [place] Rate: 100 P: 86 [place]: 160 QRS: 58 QRSD: 78 T: 78 QT: 310 QTc: 400 Interpretive Statements SINUS TACHYCARDIA ABNORMAL RHYTHM ECG Eugene Beverly MD PROCEDURES-ORDERABLE NO ELSIE Final Result [facility] * CT FACIAL BONES W CON (05/26/2025 4:44 PM CDT) Anatomical Region Laterality Modality Facial Computed Tomogra phy 05/26/2025 6:04 PM CDT Impressions 05/26/2025 6:15 PM CDT IMPRESSION: 1. Heterogeneously enhancing lesion in the left tongue and extending posteriorly to the left palatine tonsil, 5.5 x 4.0 cm resulting in narrowing of the airway. Finding is highly concerning for head and neck neoplasm and ENT consultation is recommended. Further evaluation with PET/CT can also be helpful. 2. No evidence of cervical lymphadenopathy. 3. Large periapical lucency associated with the left maxillary lateral incisor. Correlation with dental examination is recommended. Referred By: DANYELL ALLEN Interpreted By: Mian Bernal MD, 05/26/2025 6:04 PM Narrative 05/26/2025 6:[address] [place] [address] EXAMINATION: CT facial bones with contrast EXAM DATE/TIME: 05/26/2025 4:15 PM REASON FOR EXAM: mass of mouth Left-sided mouth cancer, left-sided jaw pain COMPARISON: No existing relevant imaging study available. TECHNIQUE: Axial CT images of the maxillofacial region are obtained following uneventful intravenous demonstration of 80 cc Isovue-[id number]. Subsequent coronal and sagittal reformatted sequences are created for evaluation. A dose lowering technique was used for this procedure, which may include, but is not limited to, dose reduction technique, automated exposure control, iterative reconstruction, ALARA (As Low As Reasonably Achievable), or Image Gently techniques. FINDINGS: Visualized aspects of the brain are without acute abnormality. Partial opacification of the left maxillary sinus. Mucosal thickening of the right maxillary sinus. There is a heterogeneously enhancing lesion in the left tongue and extending posteriorly to the left palatine tonsil measuring approximately 5.5 x 4.0 cm in axial dimension (axial image 66) and resulting in narrowing of the airway. No cervical lymphadenopathy. Large periapical lucency associated with the left maxillary lateral incisor. No acute maxillofacial fracture is seen. No abscess or drainable fluid collection is identified. Orbits are within normal limits on CT. Procedure Note Mian Bernal MD - 05/26/2025 [facility] [address] [place] [address] EXAMINATION: CT facial bones with contrast EXAM DATE/TIME: 05/26/2025 4:15 PM REASON FOR EXAM: mass of mouth Left-sided mouth cancer, left-sided jaw pain COMPARISON: No existing relevant imaging study available. TECHNIQUE: Axial CT images of the maxillofacial region are obtainedfollowing uneventful intravenous demonstration of 80 cc Isovue-370.Subsequent coronal and sagittal reformatted sequences are created forevaluation. A dose lowering technique was used for this procedure, whichmay include, but is not limited to, dose reduction technique, automatedexposure control, iterative reconstruction, ALARA (As Low As ReasonablyAchievable), or Image Gently techniques. FINDINGS: Visualized aspects of the brain are without acute abnormality. Partialopacification of the left maxillary sinus. Mucosal thickening of theright maxillary sinus. There is a heterogeneously enhancing lesion in the left tongue andextending posteriorly to the left palatine tonsil measuring approximately5.5 x 4.0 cm in axial dimension (axial image 66) and resulting innarrowing of the airway. No cervical lymphadenopathy. Large periapical lucency associated with the left maxillary lateralincisor. No acute maxillofacial fracture is seen. No abscess or drainable fluidcollection is identified. Orbits are within normal limits on CT. IMPRESSION: 1. Heterogeneously enhancing lesion in the left tongue and extendingposteriorly to the left palatine tonsil, 5.5 x 4.0 cm resulting innarrowing of the airway. Finding is highly concerning for head and neckneoplasm and ENT consultation is recommended. Further evaluation withPET/CT can also be helpful. 2. No evidence of cervical lymphadenopathy. 3. Large periapical lucency associated with the left maxillary lateralincisor. Correlation with dental examination is recommended. Referred By: DANYELL ALLEN Interpreted By: Mian Bernal MD, 05/26/2025 6:04 PM Danyell Allen MD CT Final Result * (ABNORMAL) CREATININE (05/26/2025 2:10 PM CDT) CREATININE S/P/B 1.71(H) 0.70 - 1.30 MG/DL 05/26/2025 4:26 PM CDT [facility] GFR ESTIMATE 44(L) >89 ML/MIN/1. 73 M2 05/26/2025 4:26 PM CDT [facility] GFR NOTES GFR REFERENCE S: 05/26/2025 4:26 PM CDT [facility] Comment: THE ESTIMATED GFR IS CALCULATED USING THE 2020 CKD-EPI EQUATION. THE FOLLOWING CATEGORIES FOR GRADING RENAL FUNCTION ARE RECOMMENDED BY THE INTERNATIONAL SOCIETY OF NEPHROLOGY (KDIGO 2012 CLINICAL PRACTICE GUIDELINE). G1,NORMAL OR HIGH: >89 ml/min/1.73 m2 G2,MILDLY DECREASED: 60-89 ml/min/1.73 m2 G3A,MILDLY TO MODERATELY DECREASED: 45-59 ml/min/1.73 m2 G3B,MODERATELY TO SEVERELY DECREASED: 30-44 ml/min/1.73 m2 G4,SEVERELY DECREASED: 15-29 ml/min/1.73 m2 G5,KIDNEY FAILURE: <15 ml/min/1.73 m2 05/26/2025 2:10 PM CDT Danyell Allen MD LABORATORY Final Result [facility] [address] [place] [address], * CT CHEST WO CON (05/22/2025 2:40 PM CDT) Anatomical Region Laterality Modality Chest Computed Tomogra phy 05/22/2025 3:13 PM CDT Impressions 05/22/2025 3:24 PM CDT IMPRESSION: 1. No acute intrathoracic process identified. 2. No evidence of metastatic disease. 3. Interval left subclavian port catheter placement. 4. Coronary artery disease. 5. Centrilobular emphysema. 6. Additional chronic/nonurgent findings as described. Ordered By: DANYELL ALLEN Interpreted By: Jermaine Chu MD, 05/22/2025 3:13 PM Narrative 05/22/2025 3:24 PM CDT [place] [address] [place] [address] Examination: CT of the chest without contrast. Exam time: 1439 hours. Clinical history: Squamous cell carcinoma of the head and neck. Preoperative testing. History of smoking. Comparison: 03/05/2025, 01/12/2019. Technique: 1 mm thick spiral scans were acquired through the chest without contrast. Sagittal and coronal reconstructions were performed from the data set. A dose lowering technique was used for this procedure, which may include, but is not limited to, dose reduction techniques, automated exposure control, the use of iterative reconstruction and ALARA/Image Gently techniques. Findings: Left subclavian port catheter is now in place with the tip terminating near the cavoatrial junction. Calcific coronary artery disease is again evident. The heart and great vessels are otherwise unremarkable for the noncontrast technique. No hilar or mediastinal adenopathy is identified. There is a minimal amount of retained secretions in the distal trachea. No other endobronchial abnormality is identified. Extensive centrilobular emphysema is again noted. Calcified pulmonary granulomas are again evident. Subcentimeter noncalcified nodules peripherally in either lower lobe are chronically present and stable, benign, presumably granulomas. There is no dominant mass, suspicious nodule or focal airspace opacity. No pleural abnormalities are seen. The chest wall structures are unchanged. No suspicious bony lesion is identified. The included sections through the upper abdomen show no acute process. Small hiatal hernia and cholelithiasis again evident. Procedure Note Jermaine Chu MD - 05/22/[address] [place] [address] Examination: CT of the chest without contrast. Exam time: 1439 hours. Clinical history: Squamous cell carcinoma of the head and neck.Preoperative testing. History of smoking. Comparison: 03/05/2025, 01/12/2019. Technique: 1 mm thick spiral scans were acquired through the chest withoutcontrast. Sagittal and coronal reconstructions were performed from thedata set. A dose lowering technique was used for this procedure, whichmay include, but is not limited to, dose reduction techniques, automatedexposure control, the use of iterative reconstruction and ALARA/ImageGently techniques. Findings: Left subclavian port catheter is now in place with the tipterminating near the cavoatrial junction. Calcific coronary artery diseaseis again evident. The heart and great vessels are otherwise unremarkablefor the noncontrast technique. No hilar or mediastinal adenopathy isidentified. There is a minimal amount of retained secretions in the distaltrachea. No other endobronchial abnormality is identified. Extensivecentrilobular emphysema is again noted. Calcified pulmonary granulomas areagain evident. Subcentimeter noncalcified nodules peripherally in eitherlower lobe are chronically present and stable, benign, presumablygranulomas. There is no dominant mass, suspicious nodule or focal airspaceopacity. No pleural abnormalities are seen. The chest wall structures areunchanged. No suspicious bony lesion is identified. The included sectionsthrough the upper abdomen show no acute process. Small hiatal hernia andcholelithiasis again evident. IMPRESSION: 1. No acute intrathoracic process identified. 2. No evidence of metastatic disease. 3. Interval left subclavian port catheter placement. 4. Coronary artery disease. 5. Centrilobular emphysema. 6. Additional chronic/nonurgent findings as described. Ordered By: DANYELL ALLEN Interpreted By: Jermaine Chu MD, 05/22/2025 3:13 PM us Danyell Allen MD CT Final Result * MRI BRAIN WWO CON (05/13/2025 11:43 AM CDT) Anatomical Region Laterality Modality Head Magnetic Resonan ce 05/15/2025 8:31 PM CDT Impressions 05/15/2025 8:34 PM CDT IMPRESSION: 1. No acute intracranial abnormalities identified. No intracranial mass, abnormal enhancement, or acute infarct. 2. Small vessel disease, small old left cerebellar infarct, and volume loss. Referred By: NOHEMY HEAD Interpreted By: Bryn Arevalo MD, 05/15/2025 8:31 PM Narrative 05/15/2025 8:[address] PM [address] [place] [address] INDICATION: Headache. Weakness. Unsteady gait. Left oral mass. EXAMINATION: MRI brain with and without contrast. TECHNIQUE: Multiplanar and multisequence MRI images of the brain were obtained before and after administration of 10 mL Dotarem intravenously without adverse event. COMPARISON: None FINDINGS: No diffusion restriction or evidence of acute infarct. No intracranial mass, mass effect, or midline shift. Postcontrast images reveal no abnormal intracranial enhancement. There are patchy foci of FLAIR hyperintensity noted in the hemispheric white matter, probably due to small vessel disease. Mild volume loss with prominence of the ventricles and extra-axial/subarachnoid spaces. Small old left cerebellar infarct. No extra-axial collections. Proximal portions of the major intracranial arterial flow voids are patent. No hemorrhagic foci of susceptibility seen on gradient echo images. Craniocervical junction, sellar content, pineal region are unremarkable. Mastoid air cells clear. Left maxillary sinus retention cyst. Visualized orbits unremarkable. Procedure Note Bryn Arevalo MD - 05/15/[address] [place] [address] INDICATION: Headache. Weakness. Unsteady gait. Left oral mass. EXAMINATION: MRI brain with and without contrast. TECHNIQUE: Multiplanar and multisequence MRI images of the brain wereobtained before and after administration of 10 mL Dotarem intravenouslywithout adverse event. COMPARISON: None FINDINGS: No diffusion restriction or evidence of acute infarct. No intracranialmass, mass effect, or midline shift. Postcontrast images reveal noabnormal intracranial enhancement. There are patchy foci of FLAIRhyperintensity noted in the hemispheric white matter, probably due tosmall vessel disease. Mild volume loss with prominence of the ventriclesand extra-axial/subarachnoid spaces. Small old left cerebellar infarct. Noextra-axial collections. Proximal portions of the major intracranialarterial flow voids are patent. No hemorrhagic foci of susceptibility seenon gradient echo images. Craniocervical junction, sellar content, pinealregion are unremarkable. Mastoid air cells clear. Left maxillary sinusretention cyst. Visualized orbits unremarkable. IMPRESSION: 1. No acute intracranial abnormalities identified. No intracranial mass,abnormal enhancement, or acute infarct. 2. Small vessel disease, small old left cerebellar infarct, and volumeloss. Referred By: NOHEMY HEAD Interpreted By: Bryn Arevalo MD, 05/15/2025 8:31 PM us Nohemy Head MD MRI Final Result * XR CHEST PA+LAT (05/11/2025 8:39 AM CDT) Anatomical Region Laterality Modality Chest Radiographic Katheryn ging 05/11/2025 8:42 AM CDT Impressions 05/11/2025 8:44 AM CDT IMPRESSION: No acute cardiopulmonary abnormality. Ordered By: AIDEN RICH Interpreted By: Raymon Rubio MD, 05/11/2025 8:42 AM Narrative 05/11/2025 8:44 AM CDT [place] [address] [place] [address] Procedure(s): XR CHEST PA+LAT Date of service: 05/11/2025 8:30 AM Provided clinical information: 65 years, Male, presyncope dizziness and weakness. Procedure and materials: PA and lateral Comparison studies: January 10, 2019. Findings: Cardiac silhouette is within normal limits. Port tip in the superior vena cava. Flattening of the hemidiaphragms due to air trapping. No consolidations are present. No definite effusions. Procedure Note Raymon Rubio MD - 05/11/2025 [facility] [address] [place] [address] Procedure(s): XR CHEST PA+LAT Date of service: 05/11/2025 8:30 AM Provided clinical information: 65 years, Male, presyncope dizzinessand weakness. Procedure and materials: PA and lateral Comparison studies: January 10, 2019. Findings: Cardiac silhouette is within normal limits. Port tip in the superior venacava. Flattening of the hemidiaphragms due to air trapping. Noconsolidations are present. No definite effusions. IMPRESSION: No acute cardiopulmonary abnormality. Ordered By: AIDEN RICH Interpreted By: Raymon Rubio MD, 05/11/2025 8:42 AM us Aiden Rich DO GENERAL IMAGING Final Result * (ABNORMAL) COMPREHENSIVE METABOLIC PANEL (05/11/2025 8:23 AM CDT) SODIUM S/P/B 138 136 - 145 MMOL/L 05/11/2025 8:50 AM CDT [facility] POTASSIUM S/P/B 4.5 3.5 - 5.1 MMOL/L 05/11/2025 8:50 AM CDT [facility] Comment:SLIGHT HEMOLYSIS, RE SULT MAY BE AFFECTED. CHLORIDE S/P/B 100 98 - 107 MMOL/L 05/11/2025 8:50 AM CDT [facility] CO2 27.1 21.0 - 32.0 MMOL/L 05/11/2025 8:50 AM CDT [facility] GLUCOSE 131(H) 70 - 99 MG/DL 05/11/2025 8:50 AM CDT [facility] Comment: FASTING GLUCOSE 100 TO 125 MG/DL IS CONSISTENT WITH IMPAIRED FASTING GLUCOSE. FASTING GLUCOSE >125 MG/DL IS CONSISTENT WITH DIABETES. RANDOM GLUCOSE >200 MG/DL WITH HYPERGLYCEMIC SYMPTOMS IS CONSISTENT WITH DIABETES. PER ADA GUIDELINES BUN 43(H) 6 - 24 MG/DL 05/11/2025 8:50 AM CDT [facility] CREATININE S/P/B 1.86(H) 0.70 - 1.30 MG/DL 05/11/2025 8:50 AM [facility] CALCIUM S/P/B 10.7(H) 8.4 - 10.5 MG/DL 05/11/2025 8:50 AM [facility] BILIRUBIN TOTAL S/P/B 0.5 0.2 - 1.0 MG/DL 05/11/2025 8:50 AM [facility] Comment: THIS ASSAY IS NOT RECOMMENDED FOR PATIENTS UNDERGOING TREATMENT WITH ELTROMBOPAG DUE TO THE POTENTIAL FOR FALSELY ELEVATED RESULTS. ALKALINE PHOSPHATASE S/P/B 128(H) 45 - 115 U/L 05/11/2025 8:50 AM [facility] AST 16 15 - 37 U/L 05/11/2025 8:50 AM [facility] ALT 26 16 - 63 U/L 05/11/2025 8:50 AM [facility] TOTAL PROTEIN S/P/B 8.4(H) 6.4 - 8.2 G/DL 05/11/2025 8:50 AM [facility] ALBUMIN S/P/B 3.6 3.4 - 5.0 G/DL 05/11/2025 8:50 AM [facility] ANION GAP 10.9 5.0 - 15.0 MMOL/L 05/11/2025 8:50 AM [facility] OSMOLALITY (CALC) 299 MOSM/KG 025 8:50 AM [facility] Comment:REFERENCE RANGE NOT ESTABLISHED GFR ESTIMATE 39(L) >89 ML/MIN/1. 73 M2 05/11/2025 8:50 AM [facility] GFR NOTES GFR REFERENCE S: 05/11/2025 8:50 AM [facility] Comment: THE ESTIMATED GFR IS CALCULATED USING THE 2020 CKD-EPI EQUATION. THE FOLLOWING CATEGORIES FOR GRADING RENAL FUNCTION ARE RECOMMENDED BY THE INTERNATIONAL SOCIETY OF NEPHROLOGY (KDIGO 2012 CLINICAL PRACTICE GUIDELINE). G1,NORMAL OR HIGH: >89 ml/min/1.73 m2 G2,MILDLY DECREASED: 60-89 ml/min/1.73 m2 G3A,MILDLY TO MODERATELY DECREASED: 45-59 ml/min/1.73 m2 G3B,MODERATELY TO SEVERELY DECREASED: 30-44 ml/min/1.73 m2 G4,SEVERELY DECREASED: 15-29 ml/min/1.73 m2 G5,KIDNEY FAILURE: <15 ml/min/1.73 m2 05/11/2025 8:23 AM CDT Aiden Rich DO LABORATORY Final Result [facility] [address] [place] [address], * TROPONIN, QUANT (05/11/2025 8:23 AM CDT) TROPONIN I HIGH SENSITIVITY 6 0 - 76 ng/L 05/11/2025 8:50 AM CDT [facility] 05/11/2025 8:23 AM CDT Aiden Rich DO LABORATORY Final Result Performing Organization Address [facility] Co de Phone Number [facility] [address] [place] [address], * ECG 12 lead (05/11/2025 8:11 AM CDT) 05/11/2025 8:11 AM CDT Narrative [facility] - 05/11/2025 9:39 PM CDT [address] [address] Test Date: 2025-05-11 Pat Name: AMOR HUGHES Department: 3 Room: EXAM 606 Gender: Male 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 [address] Test Date: 2025-05-11 Pat Name: AMOR HUGHES Department: 3 Room: EXAM 606 Gender: Male Clicker Operator: : 1960 Requested By: AIDEN RICH Order Number: [id number] Reading MD: Eugene Beverly Measurements Intervals [place] Rate: 93 P: 64 [place]: 150 QRS: 72 QRSD: 77 T: 76 QT: 335 QTc: 418 Interpretive Statements SINUS RHYTHM WITH FREQUENT SUPRAVENTRICULAR PREMATURE COMPLEXES ABNORMAL RHYTHM ECG Aiden Rich DO ECG ORDERABLES Final Result [facility] * LIPID PANEL (2024 9:28 AM CDT) CHOLESTEROL 205 MG/DL 2024 12:37 PM CDT [facility] Comment:BORDERLINE HIGH: 200 -239 TRIGLYCERIDES 106 MG/DL 2024 12:37 PM CDT [facility] Comment:<150 NORMAL HDL 72 >39 MG/DL 2024 12:37 PM CDT [facility] LDL-C 112 MG/DL 2024 12:37 PM CDT [facility] Comment:100-129 NEAR OR ABOV E OPTIMAL VLDL CALCULATION 21 MG/DL 04/17/20 12:37 PM CDT [facility] Comment:REFERENCE RANGE NOT ESTABLISHED CHOL/HDL RATIO 2.8 2024 12:37 PM CDT [facility] Comment:REFERENCE RANGE NOT ESTABLISHED LDL/HDL 1.6 2024 12:37 PM CDT [facility] Comment:REFERENCE RANGE NOT ESTABLISHED NON HDL CHOLESTEROL 133 MG/DL 2024 12:37 PM CDT [facility] Comment:REFERENCE RANGE NOT ESTABLISHED 2024 9:28 AM CDT us Sahara Calderon [facility] Final Result [facility] [address] [place] [address], [place] [phone] [id number] from Last 3 Months or Most Recently Relevant to Health Maintenance Insurance [facility] Care Teams Distribution Driver Relationship Specialty [place] [address] [place] [address] [place] [address] PCP - General FAMILY PRACTICE 01/10/21 Danyell Allen MD [address] [place] [address] OTOLARYNGOLOGY 05/25/25
--- OUTSIDE RECORDS SUMMARY | 2025-07-30 10:40 | XMS_ITS | Encounter Summary ---
Author Organization [facility] Address [address] [place] [address] Care Team Providers [employer] Name Role Phone Jeovanny Cullen MD Primary Care Provider [phone] Danyell Allen MD Unavailable [phone] Encounter Details Date Type Department Care Team (Latest Contact Info) Description 07/29/2025 Travel Social History Tobacco Use Types Packs/Day Years Used Date Smoking Tobacco: Former Cigarettes 1.5 2018 Smokeless Tobacco: Never Alcohol Use Standard Drinks/Week Comments Yes 0 (1 standard drink = 0.6 oz pur e alcohol) Sex and Gender Information Value Date Recorded Sex Assigned at Male 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 Sex Male 7:41 AM CDT Gender Identity Not on file Sexual Orientation Not on file documented as of this encounter Plan of Treatment Upcoming Encounters Date Type Department Care Team (Late st Contact Info) Description 07/30/2025 1:00 PM CDT Appointment [facility] [address] [place] [address] Alonzo Silverio MD [address] [place] [address] 07/30/2025 1:30 PM CDT Appointment [facility] [address] [place] [address] Alonzo Silverio MD [address] [place] [address] 09/03/2025 10:15 AM CDT Office Visit [facility] el [address] [place] [address] Eugene Beverly MD [address] [facility] [address] [place] [address] documented as of this encounter Visit Diagnoses Not on filedocumented in this encounter Care Teams Studio Potter Relationship Specialty Start [place] [address] [place] [address] [place] [address] PCP - General FAMILY PRACTICE 01/10/21 Danyell Allen MD [address] [place] [address] OTOLARYNGOLOGY 05/25/25 documented as of this encounter
[2025-07-30] MEDS: PEMBROLIZUMAB 200 MG in SODIUM CHLORIDE 0.9% IV 92 ML IVPB (11:05)
[2025-07-30 11:09] LABS: Thyroid Stimulating Hormone 1.520 uIU/mL (0.465-4.680)
[2025-07-30] MEDS: HEPARIN SODIUM LOCK FLUSH 500 UNITS/5 ML SYRINGE IV PUSH (11:42)
[2025-07-30 11:50] VITALS: BP 111/62; PULSE 67; RESP 14
--- NOTE | 2025-07-30 12:26 | PC.NURSE ---
Patient tolerated Pembrolizumab infusion well. SEE MAR/patient care notes
== END 2025-07-30 10:01 | disposition home or self-care (01) ==
PROVIDERS: PCP Family Medicine; Visit Provider Internal Medicine Hematology
DX: C04.9 Malignant neoplasm of floor of mouth, unspecified (principal); I10 Essential (primary) hypertension
CPT/HCPCS: 80053; 82533; 84443; 85025; 96413; J9271

== ENCOUNTER 2025-08-20 10:31 | Outpatient (CLI) | payer MEDICARE, SELFPAY ==
[2025-08-20 10:35] VITALS: BP 101/66; PULSE 76; RESP 14; TEMP 36.4; O2SAT 97; BMI 19.0
[2025-08-20 10:51] LABS: Hematocrit 39.6 % (37.0-46.0); Hemoglobin 12.5 g/dL (12.4-15.3); Immature Granulocyte Percent A 0.5 % (0.0-0.0); Lymphocytes Absolute Auto 0.35 K/mm3 (1.10-4.50); Mean Corpuscular HGB Conc 31.6 g/dL (32-36); Mean Corpuscular Hemoglobin 26.4 pg (27.0-31.0); Mean Corpuscular Volume 83.7 fL (78.0-102.0); Nucleated Red Blood Cells Absolute Auto 0.00 K/mm3 (0.00-0.00); Nucleated Red Blood Cells Perc 0.0 % (0-0.0); Platelet Count Result 289 K/mm3 (150-420); Red Blood Count 4.73 M/mm3 (4.70-6.10); White Blood Count 8.1 K/mm3 (4.8-10.8)
[2025-08-20 11:09] LABS: Alanine Aminotransferase 37 U/L (6-50); Albumin Level 4.2 g/dL (3.5-5.1); Alkaline Phosphatase 125 U/L (38-126); Anion Gap 12 mmol/L (4-12); Aspartate Amino Transferase 28 U/L (17-59); Bilirubin,Total 0.4 mg/dL (0.2-1.3); Blood Urea Nitrogen 38 mg/dL (9-20); Calcium 9.8 mg/dL (8.4-10.2); Carbon Dioxide 25 mmol/L (22-30); Chloride 100 mmol/L (98-107); Estimated CRCL calculation 43 ml/min; Estimated Glomerular Filt Rate 56; Glucose 104 mg/dL (65-110); Osmolality Calculated 293 mOsm/kg (285-295); Potassium 4.5 mmol/L (3.4-5.0); Sodium 137 mmol/L (137-145); Total Protein 7.9 g/dL (6.3-8.2)
[2025-08-20] MEDS: PEMBROLIZUMAB 200 MG in SODIUM CHLORIDE 0.9% IV 100 ML IVPB (12:15)
[2025-08-20 12:50] VITALS: BP 105/69; PULSE 78; RESP 14; TEMP 36.6; O2SAT 98
[2025-08-20] MEDS: HEPARIN SODIUM LOCK FLUSH 500 UNITS/5 ML SYRINGE IV PUSH (12:50)
--- NOTE | 2025-08-20 13:35 | PC.NURSE ---
Patient tolerated infusion treatment well. SEE MAR/patient care notes.
== END 2025-08-20 10:32 | disposition home or self-care (01) ==
PROVIDERS: PCP Family Medicine; Visit Provider Internal Medicine Hematology
DX: Z51.11 Encounter for antineoplastic chemotherapy (principal); C04.9 Malignant neoplasm of floor of mouth, unspecified
CPT/HCPCS: 36415; 36591; 80053; 85025; 96413; J9271

== ENCOUNTER 2025-09-10 10:01 | Outpatient (CLI) | payer MEDICARE, SELFPAY ==
[2025-09-10 10:10] VITALS: BMI 18.9
[2025-09-10 10:21] LABS: Hematocrit 41.4 % (37.0-46.0); Hemoglobin 12.9 g/dL (12.4-15.3); Immature Granulocyte Percent A 0.4 % (0.0-0.0); Lymphocytes Absolute Auto 0.31 K/mm3 (1.10-4.50); Mean Corpuscular HGB Conc 31.2 g/dL (32-36); Mean Corpuscular Hemoglobin 25.8 pg (27.0-31.0); Mean Corpuscular Volume 82.8 fL (78.0-102.0); Nucleated Red Blood Cells Absolute Auto 0.00 K/mm3 (0.00-0.00); Nucleated Red Blood Cells Perc 0.0 % (0-0.0); Platelet Count Result 336 K/mm3 (150-420); Red Blood Count 5.00 M/mm3 (4.70-6.10); White Blood Count 7.8 K/mm3 (4.8-10.8)
[2025-09-10 10:30] VITALS: BP 102/63; PULSE 68; RESP 14; TEMP 36.4; O2SAT 98
[2025-09-10 10:33] LABS: Alanine Aminotransferase 45 U/L (6-50); Albumin Level 4.4 g/dL (3.5-5.1); Alkaline Phosphatase 119 U/L (38-126); Anion Gap 10 mmol/L (4-12); Aspartate Amino Transferase 35 U/L (17-59); Bilirubin,Total 0.4 mg/dL (0.2-1.3); Blood Urea Nitrogen 50 mg/dL (9-20); Calcium 9.8 mg/dL (8.4-10.2); Carbon Dioxide 28 mmol/L (22-30); Chloride 100 mmol/L (98-107); Estimated CRCL calculation 45 ml/min; Estimated Glomerular Filt Rate 60; Glucose 118 mg/dL (65-110); Osmolality Calculated 300 mOsm/kg (285-295); Potassium 4.2 mmol/L (3.4-5.0); Sodium 138 mmol/L (137-145); Total Protein 7.2 g/dL (6.3-8.2)
[2025-09-10] MEDS: PEMBROLIZUMAB 200 MG in SODIUM CHLORIDE 0.9% IV 92 ML IVPB (10:35)
[2025-09-10 11:04] LABS: Thyroid Stimulating Hormone 0.864 uIU/mL (0.465-4.680)
[2025-09-10] MEDS: HEPARIN SODIUM LOCK FLUSH 500 UNITS/5 ML SYRINGE (11:27)
[2025-09-10 11:29] VITALS: BP 100/62; PULSE 64; RESP 14; TEMP 36.6; O2SAT 98
--- NOTE | 2025-09-10 11:32 | PC.NURSE ---
Patient tolerated Pembrolizumab infusion well. SEE MAR/patient care notes.
== END 2025-09-10 10:02 | disposition home or self-care (01) ==
PROVIDERS: PCP Family Medicine; Visit Provider Internal Medicine Hematology
DX: Z51.11 Encounter for antineoplastic chemotherapy (principal); C04.9 Malignant neoplasm of floor of mouth, unspecified; I10 Essential (primary) hypertension
CPT/HCPCS: 36415; 36591; 80053; 82533; 84443; 85025; 96413; J9271

== ENCOUNTER 2025-10-01 10:04 | Outpatient (CLI) | payer MEDICARE, SELFPAY ==
[2025-10-01 10:10] VITALS: BP 90/60; PULSE 68; RESP 14; TEMP 37.1; O2SAT 97; BMI 18.6
[2025-10-01 10:22] LABS: Hematocrit 40.5 % (37.0-46.0); Hemoglobin 12.7 g/dL (12.4-15.3); Immature Granulocyte Percent A 0.2 % (0.0-0.0); Lymphocytes Absolute Auto 0.37 K/mm3 (1.10-4.50); Mean Corpuscular HGB Conc 31.4 g/dL (32-36); Mean Corpuscular Hemoglobin 25.5 pg (27.0-31.0); Mean Corpuscular Volume 81.2 fL (78.0-102.0); Nucleated Red Blood Cells Absolute Auto 0.00 K/mm3 (0.00-0.00); Nucleated Red Blood Cells Perc 0.0 % (0-0.0); Platelet Count Result 278 K/mm3 (150-420); Red Blood Count 4.99 M/mm3 (4.70-6.10); White Blood Count 5.8 K/mm3 (4.8-10.8)
[2025-10-01 10:39] LABS: Alanine Aminotransferase 29 U/L (6-50); Albumin Level 4.3 g/dL (3.5-5.1); Alkaline Phosphatase 93 U/L (38-126); Anion Gap 10 mmol/L (4-12); Aspartate Amino Transferase 30 U/L (17-59); Bilirubin,Total 0.2 mg/dL (0.2-1.3); Blood Urea Nitrogen 47 mg/dL (9-20); Calcium 9.7 mg/dL (8.4-10.2); Carbon Dioxide 27 mmol/L (22-30); Chloride 101 mmol/L (98-107); Estimated CRCL calculation 42 ml/min; Estimated Glomerular Filt Rate 55; Glucose 95 mg/dL (65-110); Osmolality Calculated 298 mOsm/kg (285-295); Potassium 4.1 mmol/L (3.4-5.0); Sodium 138 mmol/L (137-145); Total Protein 7.0 g/dL (6.3-8.2)
[2025-10-01] MEDS: PEMBROLIZUMAB 200 MG in SODIUM CHLORIDE 0.9% IV 92 ML IVPB (11:20)
[2025-10-01] MEDS: HEPARIN SODIUM LOCK FLUSH 500 UNITS/5 ML SYRINGE IV PUSH (11:55)
--- NOTE | 2025-10-01 12:32 | PC.NURSE ---
1230 Tolerated Pembrolizumab well. SEE MAR/patient care note.
[2025-10-01 12:34] VITALS: BP 101/58; PULSE 68; RESP 14
== END 2025-10-01 10:05 | disposition home or self-care (01) ==
PROVIDERS: PCP Family Medicine; Visit Provider Internal Medicine Hematology
DX: Z51.11 Encounter for antineoplastic chemotherapy (principal); C04.9 Malignant neoplasm of floor of mouth, unspecified
CPT/HCPCS: 36415; 36591; 80053; 85025; 96413; J9271

== ENCOUNTER 2025-10-22 09:32 | Outpatient (CLI) | payer MEDICARE, SELFPAY ==
[2025-10-22 09:43] VITALS: BMI 18.2
[2025-10-22 09:44] VITALS: BP 104/60; PULSE 67; RESP 18; TEMP 36.6; O2SAT 96
[2025-10-22 10:05] LABS: Hematocrit 42.3 % (37.0-46.0); Hemoglobin 13.3 g/dL (12.4-15.3); Immature Granulocyte Percent A 0.3 % (0.0-0.0); Lymphocytes Absolute Auto 0.33 K/mm3 (1.10-4.50); Mean Corpuscular HGB Conc 31.4 g/dL (32-36); Mean Corpuscular Hemoglobin 25.1 pg (27.0-31.0); Mean Corpuscular Volume 80.0 fL (78.0-102.0); Nucleated Red Blood Cells Absolute Auto 0.00 K/mm3 (0.00-0.00); Nucleated Red Blood Cells Perc 0.0 % (0-0.0); Platelet Count Result 294 K/mm3 (150-420); Red Blood Count 5.29 M/mm3 (4.70-6.10); White Blood Count 6.2 K/mm3 (4.8-10.8)
[2025-10-22 10:14] LABS: Alanine Aminotransferase 40 U/L (6-50); Albumin Level 4.4 g/dL (3.5-5.1); Alkaline Phosphatase 92 U/L (38-126); Anion Gap 8 mmol/L (4-12); Aspartate Amino Transferase 42 U/L (17-59); Bilirubin,Total 0.3 mg/dL (0.2-1.3); Blood Urea Nitrogen 47 mg/dL (9-20); Calcium 9.6 mg/dL (8.4-10.2); Carbon Dioxide 28 mmol/L (22-30); Chloride 101 mmol/L (98-107); Estimated CRCL calculation 39 ml/min; Estimated Glomerular Filt Rate 52; Glucose 101 mg/dL (65-110); Osmolality Calculated 296 mOsm/kg (285-295); Potassium 4.3 mmol/L (3.4-5.0); Sodium 137 mmol/L (137-145); Total Protein 7.2 g/dL (6.3-8.2)
[2025-10-22 10:32] LABS: CRP 0.9 mg/dL (<1.0)
--- NOTE | 2025-10-22 10:33 | PC.NURSE ---
pharmacy notified labs reviewed, ok for infusion.
[2025-10-22 10:45] LABS: Thyroid Stimulating Hormone 2.570 uIU/mL (0.465-4.680)
[2025-10-22] MEDS: PEMBROLIZUMAB 200 MG in SODIUM CHLORIDE 0.9% IV 92 ML IVPB (11:03)
[2025-10-22] MEDS: HEPARIN SODIUM LOCK FLUSH 500 UNITS/5 ML SYRINGE IV PUSH (11:34)
== END 2025-10-22 11:40 | disposition home or self-care (01) ==
PROVIDERS: PCP Family Medicine; Visit Provider Internal Medicine Hematology
DX: Z51.11 Encounter for antineoplastic chemotherapy (principal); C04.9 Malignant neoplasm of floor of mouth, unspecified; I10 Essential (primary) hypertension
CPT/HCPCS: 36415; 36591; 80053; 82533; 84443; 85025; 86140; 96413; J9271

== ENCOUNTER 2025-11-11 09:29 | Outpatient (CLI) | payer MEDICARE, SELFPAY ==
[2025-11-11 09:30] VITALS: BMI 18.4
--- OUTSIDE RECORDS SUMMARY | 2025-11-11 09:37 | XMS_ITS | Clinical Summary ---
Author Organization [facility] Address [address] [place] [address] Care Team Providers Care Vice President Medical Affairs Name Role Phone Jeovanny Cullen MD Primary Care Provider Danyell Jacques MD Unavailable [phone] Allergies Active Allergy Reactions Criticality Noted [...] Encounters Date Type Department Care Team Description 10/20/2025 9:54 AM RN TEACHER - 10/20/2025 11:59 PM RN TEACHER Hospital Encounter [address] [address] Alonzo Silverio MD Discharge Disposition: Home or Self Care (Routine Discharge) 10/20/2025 Travel 10/14/2025 10:25 AM RN TEACHER - 10/14/2025 11:59 PM RN TEACHER Hospital Encounter [facility] [address] [place] [address] Dana Zhong PA-C Discharge Disposition: Home or Self Care (Routine Discharge) 10/14/[address] [facility] [address] [place] [address] Dana Zhong PA-C 10/14/2025 Travel 09/08/2025 11:20 AM CDT - 09/08/2025 11:59 PM CDT Hospital Encounter [address] [address] Alonzo Silverio MD Discharge Disposition: Home or Self Care (Routine Discharge) 09/08/2025 Travel 09/07/2025 9:30 AM CDT - 09/07/2025 11:59 PM CDT Hospital Encounter [address] [address] Alonzo Silverio MD Discharge Disposition: Home or Self Care (Routine Discharge) 09/07/2025 Travel 09/04/2025 9:20 AM CDT - 09/04/2025 11:59 PM CDT Hospital Encounter [facility] [address] [address] Alonzo Silverio MD Discharge Disposition: Home or Self Care (Routine Discharge) 09/03/2025 9:23 AM CDT - 09/03/2025 11:59 PM CDT Hospital Encounter [facility] [address] [address] Alonzo Silverio MD Discharge Disposition: Home or Self Care (Routine Discharge) 09/03/2025 Travel 09/02/2025 9:50 AM CDT - 09/02/2025 11:59 PM CDT Hospital Encounter [address] [address] Alonzo Silverio MD Discharge Disposition: Home or Self Care (Routine Discharge) 09/02/2025 9:18 AM CDT - 09/02/2025 9:49 AM CDT Hospital Encounter [address] [address] Alonzo Silverio MD Discharge Disposition: Home or Self Care (Routine Discharge) 09/01/2025 2:45 PM CDT - 09/01/2025 11:59 PM CDT Hospital Encounter [address] [address] Alonzo Silverio MD Discharge Disposition: Home or Self Care (Routine Discharge) 09/01/2025 Travel 08/31/2025 9:11 AM CDT - 08/31/2025 11:59 PM CDT Hospital Encounter [address] [address] Alonzo Silverio MD Discharge Disposition: Home or Self Care (Routine Discharge) 08/31/2025 Travel 08/28/2025 9:30 AM CDT - 08/28/2025 11:59 PM CDT Hospital Encounter [address] [address] Alonzo Silverio MD Discharge Disposition: Home or Self Care (Routine Discharge) 08/28/2025 Travel 08/27/2025 10:00 AM CDT - 08/27/2025 11:59 PM CDT Hospital Encounter [address] [address] Alonzo Silverio MD Discharge Disposition: Home or Self Care (Routine Discharge) 08/27/2025 9:17 AM CDT - 08/27/2025 9:59 AM CDT Hospital Encounter [address] [address] Alonzo Silverio MD Discharge Disposition: Home or Self Care (Routine Discharge) 08/27/2025 Travel 08/26/2025 9:16 AM CDT - 08/26/2025 11:59 PM CDT Hospital Encounter [address] [address] Alonzo Silverio MD Discharge Disposition: Home or Self Care (Routine Discharge) 08/25/2025 9:30 AM CDT - 08/25/2025 11:59 PM CDT Hospital Encounter [address] [address] Alonzo Silverio MD Discharge Disposition: Home or Self Care (Routine Discharge) 08/25/2025 Travel 08/24/2025 9:16 AM CDT - 08/24/2025 11:59 PM CDT Hospital Encounter [facility] [address] [address] Alonzo Silverio MD Discharge Disposition: Home or Self Care (Routine Discharge) 08/24/2025 Travel 08/21/2025 9:15 AM CDT - 08/21/2025 11:59 PM CDT Hospital Encounter [facility] [address] [address] Alonzo Silverio MD Discharge Disposition: Home or Self Care (Routine Discharge) 08/20/2025 10:00 AM CDT - 08/20/2025 11:59 PM CDT Hospital Encounter [address] [address] Alonzo Silverio MD Discharge Disposition: Home or Self Care (Routine Discharge) 08/20/2025 9:30 AM CDT - 08/20/2025 9:59 AM CDT Hospital Encounter [address] [address] Alonzo Silverio MD Discharge Disposition: Home or Self Care (Routine Discharge) 08/20/2025 Travel 08/19/2025 9:11 AM CDT - 08/19/2025 11:59 PM CDT Hospital Encounter [address] [address] Alonzo Silverio MD Discharge Disposition: Home or Self Care (Routine Discharge) 08/18/2025 1:00 PM CDT - 08/18/2025 11:59 PM CDT Hospital Encounter [address] [address] Alonzo Silverio MD Discharge Disposition: Home or Self Care (Routine Discharge) 08/18/2025 Travel 08/17/2025 9:19 AM CDT - 08/17/2025 11:59 PM CDT Hospital Encounter [address] [address] Alonzo Silverio MD Discharge Disposition: Home or Self Care (Routine Discharge) 08/17/2025 Travel 08/14/2025 9:16 AM CDT - 08/14/2025 11:59 PM CDT Hospital Encounter [address] [address] Alonzo Silverio MD Discharge Disposition: Home or Self Care (Routine Discharge) 08/14/2025 Results [facility] [address] [place] [address] Mary Ervin RN CLINIC - OUTPATIENT EVENT RECORDER (ECG) UP TO 30 DAYS COMPLETE (Holter) 08/13/2025 10:00 AM CDT - 08/13/2025 11:59 PM CDT Hospital Encounter [address] [address] Alonzo Silverio MD Discharge Disposition: Home or Self Care (Routine Discharge) 08/13/2025 9:30 AM CDT - 08/13/2025 9:59 AM CDT Hospital Encounter [address] [address] Alonzo Silverio MD Discharge Disposition: Home or Self Care (Routine Discharge) 08/13/2025 Travel 08/12/2025 9:24 AM CDT - 08/12/2025 11:59 PM CDT Hospital Encounter [address] [address] Alonzo Silverio MD Discharge Disposition: Home or Self Care (Routine Discharge) 08/12/2025 Travel 08/11/2025 9:20 AM CDT - 08/11/2025 11:59 PM CDT Hospital Encounter [address] [address] Alonzo Silverio MD Discharge Disposition: Home or Self Care (Routine Discharge) from Last 3 Months Family History Medical [...] Sex Assigned at Male 12/11/2024 8:53 AM RN TEACHER Legal Sex Male 7:41 AM CDT Gender [...] Care Team (Late st Contact Info) Description 12/14/2025 10:00 AM RN TEACHER Appointment [facility] [address] [place] [address] Karin Monson MD [address] [place] [address] Health Maintenance Due Date Last Done Comments [...] Wellness Visit 2024 ASCVD LDL 2025 2024 Influenza Adult (#1) 2025 09/16/2020, 01/12/20 19 AAA SCREENING Completed 05/22/2025, 02/11, 09/12/2021, Additional history exists Hepatitis A Vaccines Aged Out No long er eligible based on patient's age to complete this topic Meningococcal B Vaccine Aged Out No l onger eligible based on patient's age to complete this topic Meningococcal Vaccine Aged Out No jovi galdino eligible based on patient's age to complete this topic RSV Immunizations Under 20 Months Aged Out No longer eligible based on patient's age to complete this topic Procedures Procedure Name Priority Date/Time Associated Diagnosis Comments HC CBC AUTO W/AUTO DIFF Routine 10/14/2025 10:38 AM RN TEACHER Chronic kidney disease, stage 3 unspecified (CMS/HCC) RENAL FUNCTION PANEL Routine 10/14/2025 10:38 AM RN TEACHER Chronic kidney disease, stage 3 unspecified (CMS/HCC) CT CHEST WO CON STAT 05/22/2025 2:40 PM CDT 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) LIPID PANEL Routine 2024 9:28 AM CDT Lipid screening Family history of diabetes mellitus Hypertension, benign from Last 3 Months or Most Recently Relevant to Health Maintenance Results * (ABNORMAL) RENAL FUNCTION PANEL (10/14/2025 10:38 AM RN TEACHER) SODIUM S/P/B 140 136 - 145 MMOL/L 10/14/2025 10:55 AM [facility] POTASSIUM S/P/B 4.2 3.5 - 5.1 MMOL/L 10/14/2025 10:55 AM [facility] CHLORIDE S/P/B 101 98 - 107 MMOL/L 10/14/2025 10:55 AM [facility] CO2 28.3 21.0 - 32.0 MMOL/L 10/14/2025 10:55 AM [facility] GLUCOSE 103(H) 70 - 99 MG/DL 10/14/2025 10:55 AM [facility] Comment: FASTING GLUCOSE 100 TO 125 MG/DL IS CONSISTENT WITH IMPAIRED FASTING GLUCOSE. FASTING GLUCOSE >125 MG/DL IS CONSISTENT WITH DIABETES. RANDOM GLUCOSE >200 MG/DL WITH HYPERGLYCEMIC SYMPTOMS IS CONSISTENT WITH DIABETES. PER ADA GUIDELINES BUN 44(H) 6 - 24 MG/DL 10/14/2025 10:55 AM [facility] CREATININE S/P/B 1.30 0.70 - 1.30 MG/DL 10/14/2025 10:55 AM [facility] CALCIUM S/P/B 9.8 8.4 - 10.5 MG/DL 10/14/2025 10:55 AM [facility] ALBUMIN S/P/B 3.5 3.4 - 5.0 G/DL 10/14/2025 10:55 AM [facility] PHOSPHORUS 3.7 2.6 - 4.7 MG/DL 10/14/2025 10:55 AM [facility] ANION GAP 10.7 5.0 - 15.0 MMOL/L 10/14/2025 10:55 AM [facility] OSMOLALITY (CALC) 301 MOSM/KG 025 10:55 AM [facility] Comment:REFERENCE RANGE NOT ESTABLISHED GFR ESTIMATE 61(L) >89 ML/MIN/1. 73 M2 10/14/2025 10:55 AM [facility] GFR NOTES GFR REFERENCE S: 10/14/2025 10:55 AM [facility] Comment: THE ESTIMATED GFR IS CALCULATED [...] ml/min/1.73 m2 G5,KIDNEY FAILURE: <15 ml/min/1.73 m2 BLOOD VENOUS BLOOD SPECIMEN / Unknown 10/14/2025 10:38 AM RN TEACHER Dana Zhong PA-C LABORATORY Final Resu lt [facility] [address] [place] [address], * (ABNORMAL) CBC W/DIFF (10/14/2025 10:38 AM RN TEACHER) WBC 6.81 4.00 - 10.80 x10'3/uL 10/14/2025 10:44 AM [facility] RBC 5.41 4.50 - 6.10 x10'6/uL 10/14/2025 10:44 AM [facility] HGB 13.7 13.0 - 18.0 G/DL 10/14/2025 10:44 AM [facility] HCT 43.6 37.0 - 52.0 % 10/14/2025 10:44 AM [facility] MCV 80.6 78.0 - 100.0 FL 10/14/2025 10:44 AM [facility] MCH 25.3(L) 27.0 - 31.0 PG 10/14/2025 10:44 AM [facility] MCHC 31.4(L) 33.0 - 36.0 G/DL 10/14/2025 10:44 AM [facility] RDW 15.9(H) 11.5 - 14.5 % 10/14/2025 10:44 AM [facility] PLT 289 150 - 350 x10'3/uL 10/14/2025 10:44 AM [facility] MPV 8.6 7.4 - 10.4 FL 10/14/2025 10:44 AM [facility] CBC COMMENT NORMAL REFERENCE RANGE NOT ESTABLISHED FOR THE PROPORTIONAL LEUKOCYTE DIFFERENTIAL. 10/14/2025 10:44 AM [facility] NEUTROPHILS % 72.4 % 10/14/2025 10:44 AM [facility] LYMPHOCYTES % 6.0 % 10/14/2025 10:44 AM [facility] MONOCYTES % 11.0 % 10/14/2025 10:44 AM RN TEACHER [facility] EOSINOPHILS % 9.8 % 10/14/2025 10:44 AM RN TEACHER [facility] BASOPHILS % 0.7 % 10/14/2025 10:44 AM RN TEACHER [facility] IMMATURE GRANS % 0.1 % 10/14/20 10:44 AM RN TEACHER [facility] NRBC % 0.0 % 10/14/2025 10:44 AM RN TEACHER [facility] ABS. NEUTROPHILS 4.92 1.60 - 8.30 x10'3/uL 10/14/2025 10:44 AM RN TEACHER [facility] ABS. LYMPHOCYTES 0.41(L) 0.80 - 4.70 x10'3/uL 10/14/2025 10:44 AM RN TEACHER [facility] ABS. MONOCYTES 0.75 0.00 - 1.50 x10'3/uL 10/14/2025 10:44 AM RN TEACHER [facility] ABS. EOSINOPHILS 0.67(H) 0.00 - 0.40 x10'3/uL 10/14/2025 10:44 AM RN TEACHER [facility] ABS. BASOPHILS 0.05 0.00 - 0.20 x10'3/uL 10/14/2025 10:44 AM RN TEACHER [facility] ABS. IMMATURE GRANULOCYTES 0.01 0.00 - 0.03 x10'3/uL 10/14/2025 10:44 AM RN TEACHER [facility] ABS. NUCLEATED RBC'S 0.00 0.00 - 0.01 x10'3/uL 10/14/2025 10:44 AM RN TEACHER [facility] BLOOD VENOUS BLOOD SPECIMEN / Unknown 10/14/2025 10:38 AM RN TEACHER us Dana Zhong PA-C LABORATORY Final Resu lt [facility] [address] [place] [address], * CT CHEST WO CON (05/22/2025 2:40 PM CDT) Anatomical Region Laterality Modality Chest Computed Tomogra phy 05/22/2025 3:13 PM CDT Impressions 05/22/2025 3:24 PM CDT IMPRESSION: 1. No acute intrathoracic process identified. 2. No evidence of metastatic disease. 3. Interval left subclavian port catheter placement. 4. Coronary artery disease. 5. Centrilobular emphysema. 6. Additional chronic/nonurgent findings as described. Ordered By: DANYELL JACQUES Interpreted By: Jermaine Chu MD, 05/22/2025 3:13 PM Narrative 05/22/2025 3:24 PM CDT [address] [place] [address] Examination: CT of the chest without contrast. [...] Procedure Note Jermaine Chu MD - 05/22/2025 [facility] [address] [place] [address] Examination: CT of the chest without contrast. [...] chronic/nonurgent findings as described. Ordered By: DANYELL JACQUES Interpreted By: Jermaine Chu MD, 05/22/2025 3:13 PM us Danyell Jacques MD CT Final Result * LIPID PANEL (2024 9:28 AM CDT) CHOLESTEROL 205 MG/DL 2024 12:37 PM CDT [facility] Comment:BORDERLINE HIGH: 200 -239 TRIGLYCERIDES 106 MG/DL 2024 12:37 PM CDT [facility] Comment:<150 NORMAL HDL 72 >39 MG/DL 2024 12:37 PM CDT [facility] LDL-C 112 MG/DL 2024 12:37 PM CDT [facility] Comment:100-129 NEAR OR ABOV E OPTIMAL VLDL CALCULATION 21 MG/DL 04/17/20 12:37 PM CDT [facility] Comment:REFERENCE RANGE NOT ESTABLISHED CHOL/HDL RATIO 2.8 2024 12:37 PM CDT [facility] Comment:REFERENCE RANGE NOT ESTABLISHED LDL/HDL 1.6 2024 12:37 PM CDT [facility] Comment:REFERENCE RANGE NOT ESTABLISHED NON HDL CHOLESTEROL 133 MG/DL 2024 12:37 PM CDT [facility] Comment:REFERENCE RANGE NOT ESTABLISHED 2024 9:28 AM CDT Sahara Calderon COILED COIL INSPECTOR LABORATORY Final Result Performing Organization Address City/State/[facility] de Phone Number [facility] [address] [place] [address], [id number] from Last 3 Months or Most Recently Relevant to Health Maintenance Insurance Jose Enrique7 ZAK Agustin [phone] [facility] MEDICARE Care Teams Vice President Medical Affairs Relationship Specialty Start Date End Date Jeovanny Cullen MD [address] [place] [address] PCP - General FAMILY PRACTICE 01/10/21 Danyell Jacques MD [address] [place] [address] OTOLARYNGOLOGY 05/25/25
[2025-11-11 09:58] LABS: Hematocrit 43.4 % (37.0-46.0); Hemoglobin 13.5 g/dL (12.4-15.3); Immature Granulocyte Percent A 0.2 % (0.0-0.0); Lymphocytes Absolute Auto 0.48 K/mm3 (1.10-4.50); Mean Corpuscular HGB Conc 31.1 g/dL (32-36); Mean Corpuscular Hemoglobin 25.3 pg (27.0-31.0); Mean Corpuscular Volume 81.3 fL (78.0-102.0); Nucleated Red Blood Cells Absolute Auto 0.00 K/mm3 (0.00-0.00); Nucleated Red Blood Cells Perc 0.0 % (0-0.0); Platelet Count Result 328 K/mm3 (150-420); Red Blood Count 5.34 M/mm3 (4.70-6.10); White Blood Count 5.6 K/mm3 (4.8-10.8)
[2025-11-11 10:03] VITALS: BP 107/60; PULSE 68; RESP 14; TEMP 36.6; O2SAT 96
[2025-11-11 10:05] LABS: Alanine Aminotransferase 29 U/L (6-50); Albumin Level 4.3 g/dL (3.5-5.1); Alkaline Phosphatase 75 U/L (38-126); Anion Gap 11 mmol/L (4-12); Aspartate Amino Transferase 35 U/L (17-59); Bilirubin,Total 0.4 mg/dL (0.2-1.3); Blood Urea Nitrogen 39 mg/dL (9-20); Calcium 9.8 mg/dL (8.4-10.2); Carbon Dioxide 25 mmol/L (22-30); Chloride 104 mmol/L (98-107); Estimated CRCL calculation 45 ml/min; Estimated Glomerular Filt Rate > 60; Glucose 98 mg/dL (65-110); Osmolality Calculated 299 mOsm/kg (285-295); Potassium 4.5 mmol/L (3.4-5.0); Sodium 140 mmol/L (137-145); Total Protein 6.9 g/dL (6.3-8.2)
[2025-11-11] MEDS: PEMBROLIZUMAB 200 MG in SODIUM CHLORIDE 0.9% IV 92 ML IVPB (10:30)
[2025-11-11] MEDS: HEPARIN SODIUM LOCK FLUSH 500 UNITS/5 ML SYRINGE IV PUSH (11:11)
[2025-11-11 11:12] VITALS: BP 113/69; PULSE 68; RESP 14; O2SAT 96
--- NOTE | 2025-11-11 11:12 | PC.NURSE ---
Patient tolerated Pembrolizumab infusion well. SEE MAR/patient care notes.
== END 2025-11-11 09:30 | disposition home or self-care (01) ==
PROVIDERS: PCP Family Medicine; Visit Provider Internal Medicine Hematology
DX: Z51.11 Encounter for antineoplastic chemotherapy (principal); C04.9 Malignant neoplasm of floor of mouth, unspecified
CPT/HCPCS: 36415; 80053; 85025; 96413; J9271